=== PATIENT | female | born 1970 | race Caucasian/White ===

== ENCOUNTER → 2017-02-17 | Outpatient (CLI) | payer BC ==
--- NOTE | 2017-02-18 07:31 | MM ---
Reason for exam: follow-up at short interval from prior study. Last mammogram was performed 7 months ago. History: Patient is postmenopausal. Benign MG stereo VAD BX RT of the right breast, July 30, 2016. Benign right mammotome panel of the right breast, May 10, 2010. Took hormonal contraceptives for 12 years. Physical Findings: Nurse did not find any significant physical abnormalities on exam. MG Diagnostic Mammo RT w CAD CC and MLO view(s) were taken of the right breast. Prior study comparison: July 18, 2016, right breast MG work up mamm w CAD RT. June 13, 2015, bilateral MG screening mammo w CAD. The breast tissue is heterogeneously dense. This may lower the sensitivity of mammography. Finding: There are typically benign round, milk of calcium calcifications in the right breast. Previous mammotome biopsy in the right breast x 2. There is a chronic nodularity in the right breast. These results were verbally communicated with the patient and result sheet given to the patient on 02/17/17. ASSESSMENT: Benign, BI-RAD 2 RECOMMENDATION: Return to routine screening mammogram schedule for both breasts. Back on schedule.
== END | disposition home or self-care (01) ==
LOC: RADMAMWWP 14:21
PROVIDERS: ATTEND Obstetrics & Gynecology
DX: R92.8 Other abnormal and inconclusive findings on diagnostic imaging of breast (principal); R92.1 Mammographic calcification found on diagnostic imaging of breast

== ENCOUNTER → 2017-07-23 | Outpatient (CLI) | payer BC ==
--- NOTE | 2017-07-24 10:06 | WWHP ---
DATE OF SERVICE: 07/23/17 CHIEF COMPLAINT: The patient is here for her routine gynecological exam and mammogram. HISTORY OF PRESENT ILLNESS: This is a 46-year-old G2, P2, with an LMP of 2010. She is status post endometrial ablation for hypermenorrhea and has been amenorrheic since 2010. She is status post tubal ligation. The patient has been experiencing greater hot flashes during the past year. She states they can be variable. She states they are tolerable. She denies any vaginal bleeding. PAST MEDICAL HISTORY: [place] in 2011 and is status post stent placement. She also has history of elevated cholesterol. Medications: 1. Plavix generic 75 mg daily. 2. Coreg generic 3.125 mg b.i.d. 3. Atorvastatin 40 mg daily. 4. John aspirin 81 mg daily. ALLERGIES: No known drug allergies. PAST SURGICAL HISTORY: Right breast biopsy on 07/2016 which was benign. Laparoscopic ovarian cyst surgery in 2014. Tubal ligation in 1999. Endometrial ablation in 2010. in 1997, foot surgery in 2015. PAST PRODUCTION CONSULTANT HISTORY: She has been amenorrheic since her endometrial ablation in 2010 and has no history of STDs. SOCIAL HISTORY: She quit smoking in 2011 and has about 3 to 5 alcohol drinks per week. Denies drug use. She has been since 1994. 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 FAMILY HISTORY: Sister had coronary artery disease and cervical cancer. REVIEW OF SYSTEMS: Weight has been stable. She denies respiratory, cardiac or gastrointestinal problems. PHYSICAL EXAM: Blood pressure 129/80. Height 5 feet 5 1/2 inches. Weight 169 pounds. Temperature 98.1. Pulse 76. This is a well developed, well nourished white female who is alert and oriented times three in no acute distress. HEENT: is within normal limits. Neck is supple without mass or thyromegaly. Chest and lungs clear to auscultation. Heart is regular rate and rhythm. Breasts: Without mass or discharge. Axillary exam is negative for adenopathy. Back negative for CVA tenderness. Abdomen is soft and nontender without palpable masses. Pelvic exam, normal external genitalia. Cervix and vagina appear normal. There is no significant atrophy. There is no evidence of prolapse. The uterus is mid position, nongravid size and nontender. There are no palpable adnexal masses or tenderness. Rectal exam negative for mass or tenderness. Negative for occult blood. Extremities nontender. IMPRESSION: 1. A 46-year-old perimenopausal female who is amenorrheic following her endometrial ablation and is status post tubal ligation. 2. Moderate vasomotor symptoms consistent with perimenopause. PLAN: 1. Pap smear was deferred since she had a normal one last year. 2. Self breast examination was discussed. 3. Mammogram will be done today. 4. Osteoporosis prevention was discussed. 5. She will return in one year. MARLEEN
--- NOTE | 2017-07-24 11:23 | MM ---
Reason for exam: screening (asymptomatic). Last mammogram was performed 5 months ago. History: Patient is postmenopausal. Benign MG stereo VAD BX RT of the right breast, July 30, 2016. Benign right mammotome panel of the right breast, May 10, 2010. Took hormonal contraceptives for 12 years. Physical Findings: Dr. Navarrete did not find any significant physical abnormalities on exam. MG Screening Mammo w CAD Bilateral CC and MLO view(s) were taken. Prior study comparison: February 17, 2017, right breast MG diagnostic mammo RT w CAD. July 18, 2016, right breast MG work up mamm w CAD RT. July 16, 2016, bilateral MG screening mammo w CAD. The breast tissue is heterogeneously dense. This may lower the sensitivity of mammography. There are stable calcifications associated with biopsy markers. Biopsy markers in the right breast. ASSESSMENT: Benign, BI-RAD 2 RECOMMENDATION: Routine screening mammogram of both breasts in 1 year.
== END ==
LOC: WWCWWP 08:41
PROVIDERS: ATTEND Obstetrics & Gynecology
DX: Z12.31 Encounter for screening mammogram for malignant neoplasm of breast (principal)

== ENCOUNTER 2017-12-24 09:11 | Emergency (ER) | payer BC ==
[2017-12-24] MEDS ORDERED: SODIUM CHLORIDE 0.9% 1,000 ML IV STA (09:22)
[2017-12-24] MEDS ORDERED: HYDROmorphone 0.5 MG/0.5 ML SYRINGE IVP STA (09:26)
--- NOTE | 2017-12-24 09:30 | ED ---
General Adult HPI - General Chief complaint: Abdominal Pain Stated complaint: ABDOMINAL PAIN Time Seen by Provider: 12/24/17 09:16 Source: patient, RN notes reviewed Mode of arrival: ambulatory Limitations: no limitations - History of Present Illness Initial comments: 47-year-old female presents to the emergency department with a chief complaint of right-sided flank pain. Patient states this started on Friday. It originally started coming and going but now it is common in this state. Patient states that she hasn't had any fever chills with this. She's not had any nausea or vomiting. She is not related to food. Initially she thought it might be back pain but then it just continue to exist and it keeps getting worse. She states that it is a constant type pain. She states that her [place] does help with the pain. She denies any falls traumas or injuries with it. She called her physician and she was referred here to be evaluated. She states she is not currently having any other symptoms at this time. Patient denies any recent fever, chills, shortness of breath, chest pain, back pain, nausea vomiting, numbness or tingling, dysuria or hematuria, constipation or diarrhea, headaches or visual changes, or any other current symptoms. - Related Data Home Medications Medication Instructions Recorded Confirmed Aspirin 81 mg PO DAILY 12/16/14 12/24/17 Atorvastatin [Lipitor] 40 mg PO HS 12/16/14 12/24/17 Clopidogrel Bisulfate [Plavix] 75 mg PO DAILY 12/16/14 12/24/17 Carvedilol [Coreg] 3.125 mg PO BID 01/29/16 12/24/17 Previous Rx's Medication Instructions Recorded Orphenadrine [Norflex] 100 mg PO Q12H #10 tablet.er 12/24/17 Allergies Allergy/AdvReac Type Severity Reaction Status Date / Time No Known Allergies Allergy Verified 12/24/17 09:40 Review of Systems ROS Statement: Those systems with pertinent positive or pertinent negative responses have been documented in the HPI. ROS Other: All systems not noted in ROS Statement are negative. Past Medical History Past Medical History: Coronary Artery Disease (CAD), Myocardial Infarction ([place]) Additional Past Medical History / Comment(s): 12/16/14 [facility] with c/o abdominal pain that started last nite. Towards morning she also had some nausea. She went to Dr. Rocael Tarango's office this AM and was sent to hospital for further work-up. There was concern about possibel appendicitis. Pt also experienced low grade fevers. Other HX [place] August 2012 Last Myocardial Infarction Date:: 2011 History of Any Multi-Drug Resistant Organisms: None Reported Past Surgical History: Ablation, Section, Heart Catheterization With Stent, Tubal Ligation Additional Past Surgical History / Comment(s): colonoscopy about 1997 Past Anesthesia/Blood Transfusion Reactions: No Reported Reaction Additional Past Anesthesia/Blood Transfusion Reaction / Comment(s): Pt has never recieved blood. Date of Last Stent Placement:: Aug 2012 Past Psychological History: No Psychological Hx Reported Smoking Status: Former smoker Past Alcohol Use History: Occasional Past Drug Use History: None Reported - Past Family History Father Family Medical History: CVA/TIA Additional Family Medical History / Comment(s): Father is living. Mother Family Medical History: Diabetes Mellitus Additional Family Medical History / Comment(s): Mother is living. General Exam - General Exam Comments Initial Comments: General: The patient is awake and alert, in no distress, and does not appear acutely ill. Eye: Pupils are equal, round and reactive to light, extra-ocular movements are intact; there is normal conjunctiva bilaterally. No signs of icterus. Ears, nose, mouth and throat: There are moist mucous membranes and no oral lesions. Neck: The neck is supple, there is no tenderness. Cardiovascular: There is a regular rate and rhythm. No murmur, rub or gallop is appreciated. Respiratory: Lungs are clear to auscultation, respirations are non-labored, breath sounds are equal. No wheezes, stridor, rales, or rhonchi. Gastrointestinal: Soft, non-distended, non-tender abdomen without masses or organomegaly noted. There is no rebound or guarding present. Right-sided CVA tenderness. Bowel sounds are unremarkable. Back: There is no tenderness to palpation in the midline. There is no obvious deformity. No rashes noted. Musculoskeletal: Normal ROM, no tenderness, There is no pedal edema. There is no calf tenderness or swelling. Sensation intact. Pulses equal bilaterally 2+. Neurological: CN II-XII intact, There are no obvious motor or sensory deficits. Coordination appears grossly intact. Speech is normal. Skin: Skin is warm and dry and no rashes or lesions are noted. Psychiatric: Cooperative, appropriate mood & affect, normal judgment. Limitations: no limitations Course Vital Signs 12/24/17 09:13 Temperature 97.8 F Pulse Rate 55 L Respiratory 20 Rate Blood Pressure 147/74 O2 Sat by Pulse 99 Oximetry Medical Decision Making - Medical Decision Making 47-year-old female presents for right-sided flank pain. At this time lab work is been reviewed. I got a verbal report of the CAT scan was that there is nothing acute found. This time patient is feeling better. We discussed different etiologies for this pain liters discussed the could be muscle skeletal due to the its positional change and the fact there is no fever nausea vomiting associated with it. 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 We discussed we'll also start her muscle relaxers as well as exercises. We did discuss return parameters all questions. She stated that she understood and she is given plan. She will be discharged. - Lab Data Result diagrams: 12/24/17 10:05 12/24/17 10:05 Lab Results 12/24/17 12/24/17 12/24/17 Range/Units 10:05 10:05 10:05 WBC 7.6 (3.8-10.6) k/uL RBC 4.20 (3.80-5.40) m/uL Hgb 13.6 (11.4-16.0) gm/dL Hct 42.3 (34.0-46.0) % MCV 100.8 H (80.0-100.0) fL MCH 32.3 (25.0-35.0) pg MCHC 32.0 (31.0-37.0) g/dL RDW 14.0 (11.5-15.5) % Plt Count 218 (150-450) k/uL Neutrophils % 56 % Lymphocytes % 31 % Monocytes % 5 % Eosinophils % 5 % Basophils % 0 % Neutrophils # 4.3 (1.3-7.7) k/uL Lymphocytes # 2.3 (1.0-4.8) k/uL Monocytes # 0.4 (0-1.0) k/uL Eosinophils # 0.4 (0-0.7) k/uL Basophils # 0.0 (0-0.2) k/uL Macrocytosis Slight Sodium 140 (137-145) mmol/L Potassium 3.7 (3.5-5.1) mmol/L Chloride 104 (98-107) mmol/L Carbon Dioxide 28 (22-30) mmol/L Anion Gap 8 mmol/L BUN 13 (7-17) mg/dL Creatinine 0.76 (0.52-1.04) mg/dL Est GFR (MDRD) Af Amer >60 (>60 ml/min/1.73 sqM) Est GFR (MDRD) Non-Af >60 (>60 ml/min/1.73 sqM) Glucose 106 H (74-99) mg/dL Plasma Lactic Acid Toi 0.9 (0.7-2.0) mmol/L Calcium 9.2 (8.4-10.2) mg/dL Total Bilirubin 0.5 (0.2-1.3) mg/dL AST 19 (14-36) U/L ALT 34 (9-52) U/L Alkaline Phosphatase 64 (38-126) U/L Total Protein 6.7 (6.3-8.2) g/dL Albumin 3.9 (3.5-5.0) g/dL Amylase 42 (30-110) U/L Lipase 68 (23-300) U/L Urine Color Urine Appearance (Clear) Urine pH (5.0-8.0) Ur Specific [place] (1.001-1.035) Urine Protein (Negative) Urine Glucose (UA) (Negative) Urine Ketones (Negative) Urine Blood (Negative) Urine Nitrite (Negative) Urine Bilirubin (Negative) Urine Urobilinogen (<2.0) mg/dL Ur Leukocyte Esterase (Negative) Urine RBC (0-5) /hpf Urine WBC (0-5) /hpf Ur Squamous Epith Cells (0-4) /hpf Urine Bacteria (None) /hpf Urine Mucus (None) /hpf 12/24/17 Range/Units 10:05 WBC (3.8-10.6) k/uL RBC (3.80-5.40) m/uL Hgb (11.4-16.0) gm/dL Hct (34.0-46.0) % MCV (80.0-100.0) fL MCH (25.0-35.0) pg MCHC (31.0-37.0) g/dL RDW (11.5-15.5) % Plt Count (150-450) k/uL Neutrophils % % Lymphocytes % % Monocytes % % Eosinophils % % Basophils % % Neutrophils # (1.3-7.7) k/uL Lymphocytes # (1.0-4.8) k/uL Monocytes # (0-1.0) k/uL Eosinophils # (0-0.7) k/uL Basophils # (0-0.2) k/uL Macrocytosis Sodium (137-145) mmol/L Potassium (3.5-5.1) mmol/L Chloride (98-107) mmol/L Carbon Dioxide (22-30) mmol/L Anion Gap mmol/L BUN (7-17) mg/dL Creatinine (0.52-1.04) mg/dL Est GFR (MDRD) Af Amer (>60 ml/min/1.73 sqM) Est GFR (MDRD) Non-Af (>60 ml/min/1.73 sqM) Glucose (74-99) mg/dL Plasma Lactic Acid Toi (0.7-2.0) mmol/L Calcium (8.4-10.2) mg/dL Total Bilirubin (0.2-1.3) mg/dL AST (14-36) U/L ALT (9-52) U/L Alkaline Phosphatase (38-126) U/L Total Protein (6.3-8.2) g/dL Albumin (3.5-5.0) g/dL Amylase (30-110) U/L Lipase (23-300) U/L Urine Color Yellow Urine Appearance Cloudy H (Clear) Urine pH 5.5 (5.0-8.0) Ur Specific [place] 1.012 (1.001-1.035) Urine Protein Negative (Negative) Urine Glucose (UA) Negative (Negative) Urine Ketones Negative (Negative) Urine Blood Negative (Negative) Urine Nitrite Negative (Negative) Urine Bilirubin Negative (Negative) Urine Urobilinogen <2.0 (<2.0) mg/dL Ur Leukocyte Esterase Negative (Negative) Urine RBC <1 (0-5) /hpf Urine WBC <1 (0-5) /hpf Ur Squamous Epith Cells 6 H (0-4) /hpf Urine Bacteria Occasional H (None) /hpf Urine Mucus Occasional H (None) /hpf - Radiology Data Radiology results: image reviewed Interpreted by me: verbal report was given which stated no acute process Disposition Clinical Impression: Right flank pain Disposition: HOME SELF-CARE Condition: Stable Instructions: Lower Back Exercises (ED), Abdominal Pain (ED) Additional Instructions: Please use medication as discussed. Please follow up with family doctor if symptoms have not improved over the next two days. Please return to the emergency room if your symptoms increase or worsen or for any other concerns. Prescriptions: Orphenadrine [Norflex] 100 mg PO Q12H #10 tablet.er Referrals: Mainor Tarango MD [Primary Care Provider] - 1-2 days Time of Disposition: 12:01
[2017-12-24 10:18] LABS: Basophils % (A) 0 %; Eosinophils # (A) 0.4 k/uL (0-0.7); Eosinophils % (A) 5 %; HCT 42.3 % (34.0-46.0); HGB 13.6 gm/dL (11.4-16.0); Lymphocytes # (A) 2.3 k/uL (1.0-4.8); Lymphocytes % (A) 31 %; MCH 32.3 pg (25.0-35.0); MCV 100.8 fL (80.0-100.0); Macrocytosis Slight; Mean Platelet Volume 7.7; Monocytes # (A) 0.4 k/uL (0-1.0); Monocytes % (A) 5 %; Neutrophils # (A) 4.3 k/uL (1.3-7.7); Neutrophils % (A) 56 %; Platelet Count 218 k/uL (150-450); WBC 7.6 k/uL (3.8-10.6)
[2017-12-24 10:30] LABS: Appearance,Urine Cloudy (Clear); Bacteria,Urine Occasional /hpf; Bilirubin,Urine Negative (Negative); Blood,Urine Negative (Negative); Color,Urine Yellow; Glucose,Urine (UA) Negative (Negative); Ketones,Urine Negative (Negative); Leukocyte Esterase,Urine Negative (Negative); Mucus,Urine Occasional /hpf; Nitrite,Urine Negative (Negative); PH, Urine 5.5 (5.0-8.0); Protein,Urine Negative (Negative); RBC,Urine <1 /hpf (0-5); Specific Gravity,Urine 1.012 (1.001-1.035); Squamous Epithelial Cell,Urine 6 /hpf (0-4); Urobilinogen,Urine <2.0 mg/dL (<2.0); WBC,Urine <1 /hpf (0-5)
[2017-12-24 10:33] LABS: ALT 34 U/L (9-52); AST 19 U/L (14-36); Albumin 3.9 g/dL (3.5-5.0); Alkaline Phosphatase 64 U/L (38-126); Amylase 42 U/L (30-110); Anion Gap 8 mmol/L; Blood Urea Nitrogen 13 mg/dL (7-17); Calcium 9.2 mg/dL (8.4-10.2); Carbon Dioxide 28 mmol/L (22-30); Chloride 104 mmol/L (98-107); Glucose 106 mg/dL (74-99); Lipase 68 U/L (23-300); Potassium 3.7 mmol/L (3.5-5.1); Sodium 140 mmol/L (137-145); Total Bilirubin 0.5 mg/dL (0.2-1.3); Total Protein 6.7 g/dL (6.3-8.2)
[2017-12-24] MEDS ORDERED: RX INFO: IV CONTRAST WAS GIVEN 1 EACH MISC MISCELLANE PRN (10:34)
--- NOTE | 2017-12-24 12:39 | CT ---
EXAMINATION TYPE: CT abdomen pelvis w con DATE OF EXAM: 12/24/2017 HISTORY: Patient complains of RLQ pain. CT DLP: 612.1mGycm Automated Exposure Control for Dose Reduction was Utilized. CONTRAST: CT scan of the abdomen and pelvis is performed without oral and with IV Contrast, patient injected wi th 100 mL of Omnipaque 300. COMPARISON: CT abdomen and pelvis October 16, 2015. FINDINGS: LUNG BASES: No significant abnormality is appreciated. LIVER/GB: Single calcification left hepatic lobe axial image 19 is redemonstrated. PANCREAS: No significant abnormality is seen. SPLEEN: No significant abnormality is seen. ADRENALS: No significant abnormality is seen. KIDNEYS: No significant abnormality is seen. BOWEL: Some food product in the stomach suggest recent meal ingestion. No suspicious small or large b owel dilatation is seen. Appendix is within normal limits slightly ascending from posterior aspect of cecum. UTERUS/ADNEXA: Heterogeneous lobulated uterus is consistent with underlying fibroids there is promine nce of the lower uterine segment or cervix on axial image 71, this has similar appearance to prior st y axial image 71. Both ovaries are seen and not suspiciously enlarged. LYMPH NODES: No greater than 1cm abdominal or pelvic lymph nodes are appreciated. OSSEOUS STRUCTURES: There is marked disc space narrowing with endplate sclerosis and moderate spurrin g L4-L5 levels. There is facet arthropathy seen lower lumbar levels. OTHER: No significant additional abnormality is seen. IMPRESSION: No CT evidence for acute appendicitis. No significant acute finding is seen to account fo r patient's clinical symptoms.
[2017-12-24 12:41] VITALS: BP 121/69; PULSE 51; RESP 18; TEMP 96.9
== END 2017-12-24 12:40 | disposition home or self-care (01) ==
LOC: EC 09:11
DX: R10.9 Unspecified abdominal pain (principal); I25.10 Atherosclerotic heart disease of native coronary artery without angina pectoris; I25.2 Old myocardial infarction; Z87.891 Personal history of nicotine dependence; Z79.02 Long term (current) use of antithrombotics/antiplatelets; Z79.82 Long term (current) use of aspirin; Z79.899 Other long term (current) drug therapy
CPT/HCPCS: 36415; 80053; 82150; 83605; 83690; 85025; 81001; 87040; 87086; 74177; 99284; 96374; 96361; Q9967; J1170

== ENCOUNTER 2018-03-10 12:23 | Emergency (ER) | payer BC ==
[2018-03-10] MEDS ORDERED: SODIUM CHLORIDE 0.9% 500 ML IV STA (12:53)
--- NOTE | 2018-03-10 12:58 | ED ---
General Adult HPI - General Source: RN notes reviewed <Javier Steel - Last Filed: 03/10/18 14:27> <Francisco Garcia - Last Filed: 03/10/18 15:13> - General Stated complaint: Chest pain Time Seen by Provider: 03/10/18 12:48 - History of Present Illness Initial comments: This a pleasant 47-year-old female presents emergency department after developing a fast heart rate and some chest pressure while at work. Symptoms started about 11:40 AM. Patient does have a history of myocardial infarction in 2011. Patient had to have one vessel stented. Patient's gear hobber is ARA Clemons. Patient states she did take a nitroglycerin and is having some lightheadedness. Patient states she feels somewhat better now. She states the sensation lasted for several minutes. Patient has no history of tachyarrhythmias. Patient denies fever or chills. No cough. No new medications. No smoking or alcohol abuse. No illicit drug abuse. No thyroid issues. Patient has been eating and drinking normally. No abdominal pain. No headache. No vision or hearing changes. No paresthesias. No change in bowels or urination. (Javier Steel) - Related Data Home Medications Medication Instructions Recorded Confirmed Aspirin 81 mg PO DAILY 12/16/14 03/10/18 Atorvastatin [Lipitor] 40 mg PO HS 12/16/14 03/10/18 Clopidogrel Bisulfate [Plavix] 75 mg PO DAILY 12/16/14 03/10/18 Carvedilol [Coreg] 3.125 mg PO BID 01/29/16 03/10/18 Previous Rx's Medication Instructions Recorded Hydrocodone/Acetaminophen [[place] 1 each PO Q6HR PRN #10 tab 12/24/17 5-325] Orphenadrine [Norflex] 100 mg PO Q12H #10 tablet.er 12/24/17 Allergies Allergy/AdvReac Type Severity Reaction Status Date / Time No Known Allergies Allergy Verified 03/10/18 13:03 Review of Systems ROS Other: All systems not noted in ROS Statement are negative. <Javier Steel - Last Filed: 03/10/18 14:27> ROS Other: All systems not noted in ROS Statement are negative. <Francisco Garcia - Last Filed: 03/10/18 15:13> ROS Statement: Those systems with pertinent positive or pertinent negative responses have been documented in the HPI. Past Medical History Past Medical History: Coronary Artery Disease (CAD), Myocardial Infarction ([place]) Additional Past Medical History / Comment(s): 12/16/14 Pt presented to [facility] ER by car with c/o abdominal pain that started last nite. Towards morning she also had some nausea. She went to Dr. Rocael Tarango's office this AM and was sent to hospital for further work-up. There was concern about possibel appendicitis. Pt also experienced low grade fevers. Other HX [place] August 2012 Last Myocardial Infarction Date:: 2011 History of Any Multi-Drug Resistant Organisms: None Reported Past Surgical History: Ablation, Section, Heart Catheterization With Stent, Tubal Ligation Additional Past Surgical History / Comment(s): colonoscopy about 1997 Past Anesthesia/Blood Transfusion Reactions: No Reported Reaction Additional Past Anesthesia/Blood Transfusion Reaction / Comment(s): Pt has never recieved blood. Date of Last Stent Placement:: Aug 2012 Past Psychological History: No Psychological Hx Reported Smoking Status: Former smoker Past Alcohol Use History: Occasional Additional Past Alcohol Use History / Comment(s): Past medical and surgical history reviewed Past Drug Use History: None Reported - Past Family History Father Family Medical History: CVA/TIA Additional Family Medical History / Comment(s): Father is living. Mother Family Medical History: Diabetes Mellitus Additional Family Medical History / Comment(s): Mother is living. <Javier Steel - Last Filed: 03/10/18 14:27> General Exam General appearance: alert, in no apparent distress Head exam: Present: atraumatic, normocephalic, normal inspection Eye exam: Present: normal appearance, PERRL, EOMI. Absent: scleral icterus, conjunctival injection, periorbital swelling ENT exam: Present: normal exam, mucous membranes moist Neck exam: Present: normal inspection. Absent: tenderness, meningismus, lymphadenopathy Respiratory exam: Present: normal lung sounds bilaterally. Absent: respiratory distress, wheezes, rales, rhonchi, stridor Cardiovascular Exam: Present: regular rate, normal rhythm, normal heart sounds. Absent: systolic murmur, diastolic murmur, rubs, gallop, clicks GI/Abdominal exam: Present: soft, normal bowel sounds. Absent: distended, tenderness, guarding, rebound, rigid Extremities exam: Present: normal inspection, full ROM, normal capillary refill. Absent: tenderness, pedal edema, joint swelling, calf tenderness Back exam: Present: normal inspection Neurological exam: Present: alert, oriented X3, CN II-XII intact Psychiatric exam: Present: normal affect, normal mood Skin exam: Present: warm, dry, intact, normal color. 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 (Javier Steel) - Reevaluation(s) Reevaluation #1: 03/10/18 12:58 As I assessed the patient initially I noticed that the heart rate is in the 60s. It appears the patient did spontaneously convert back to normal rhythm. Patient's symptoms are improving. (Javier Steel) Reevaluation #2: 03/10/18 14:14 Patient remained in normal sinus rhythm throughout the course of stay in the ER. Patient had no chest pain. Patient initially out palpitations and racing heartbeat. She did have a small amount of pressure with that sensation. She also had lightheadedness. The symptoms are improving. Patient's workup was essentially negative. (Javier Steel) EKG Findings - EKG Comments: EKG Findings:: Initial EKG at 12:32 PM reveals SVT with a rate of [address] or T-wave changes. CT interval is unmeasurable. QRS 72 ms, QTC 457 ms. Repeat EKG done at 1 PM reveals normal sinus rhythm with a rate of 63, CT interval 122, QRS 70, QTC 427, no acute ST or T wave changes, normal axis. <DamiánJavier - Last Filed: 03/10/18 14:27> Medical Decision Making - Lab Data Result diagrams: 03/10/18 13:00 03/10/18 13:00 <DamiánJavier - Last Filed: 03/10/18 14:27> - Lab Data Result diagrams: 03/10/18 13:00 03/10/18 13:00 <Francisco Garcia - Last Filed: 03/10/18 15:13> - Medical Decision Making Patient's workup here in the are was essentially negative. We will have the patient follow-up with her gear hobber and keep the patient out of work for the next few days. All findings reviewed with the patient. Return and follow- up parameters were discussed. Case was discussed in detail with the ER attending physician--who also saw the patient and suggested outpatient follow- up within the next few days with cardiology. Portable chest x-ray reveals no evidence of acute pathology (Javier Steel) The patient was seen and examined. All diagnostics were reviewed. Is felt as though she is stable for discharge at this time. The case is discussed with the PA and I agree with the findings as documented. It is recommended that she have close follow-up with her gear hobber. (Francisco Garcia) - Lab Data Lab Results 03/10/18 03/10/18 03/10/18 Range/Units 13:00 13:00 13:00 WBC 6.5 (3.8-10.6) k/uL RBC 4.43 (3.80-5.40) m/uL Hgb 14.5 (11.4-16.0) gm/dL Hct 41.0 (34.0-46.0) % MCV 92.6 (80.0-100.0) fL MCH 32.7 (25.0-35.0) pg MCHC 35.4 (31.0-37.0) g/dL RDW 12.4 (11.5-15.5) % Plt Count 224 (150-450) k/uL Neutrophils % 58 % Lymphocytes % 27 % Monocytes % 5 % Eosinophils % 7 % Basophils % 0 % Neutrophils # 3.8 (1.3-7.7) k/uL Lymphocytes # 1.8 (1.0-4.8) k/uL Monocytes # 0.3 (0-1.0) k/uL Eosinophils # 0.4 (0-0.7) k/uL Basophils # 0.0 (0-0.2) k/uL PT (9.0-12.0) sec INR (<1.2) APTT (22.0-30.0) sec Sodium 141 (137-145) mmol/L Potassium 4.3 (3.5-5.1) mmol/L Chloride 109 H (98-107) mmol/L Carbon Dioxide 18 L (22-30) mmol/L Anion Gap 14 mmol/L BUN 14 (7-17) mg/dL Creatinine 0.70 (0.52-1.04) mg/dL Est GFR (CKD-EPI)AfAm >90 (>60 ml/min/1.73 sqM) Est GFR (CKD-EPI)NonAf >90 (>60 ml/min/1.73 sqM) Glucose 105 H (74-99) mg/dL Calcium 9.6 (8.4-10.2) mg/dL Magnesium 1.8 (1.6-2.3) mg/dL Total Bilirubin 0.6 (0.2-1.3) mg/dL AST 22 (14-36) U/L ALT 27 (9-52) U/L Alkaline Phosphatase 83 (38-126) U/L Total Creatine Kinase 79 (30-135) U/L CK-MB (CK-2) 0.7 (0.0-2.4) ng/mL CK-MB (CK-2) Rel Index 0.9 Troponin I 0.015 (0.000-0.034) ng/mL Total Protein 7.4 (6.3-8.2) g/dL Albumin 4.2 (3.5-5.0) g/dL TSH (0.465-4.680) mIU/L 03/10/18 03/10/18 Range/Units 13:00 13:44 WBC (3.8-10.6) k/uL RBC (3.80-5.40) m/uL Hgb (11.4-16.0) gm/dL Hct (34.0-46.0) % MCV (80.0-100.0) fL MCH (25.0-35.0) pg MCHC (31.0-37.0) g/dL RDW (11.5-15.5) % Plt Count (150-450) k/uL Neutrophils % % Lymphocytes % % Monocytes % % Eosinophils % % Basophils % % Neutrophils # (1.3-7.7) k/uL Lymphocytes # (1.0-4.8) k/uL Monocytes # (0-1.0) k/uL Eosinophils # (0-0.7) k/uL Basophils # (0-0.2) k/uL PT 9.7 (9.0-12.0) sec INR 1.0 (<1.2) APTT 23.7 (22.0-30.0) sec Sodium (137-145) mmol/L Potassium (3.5-5.1) mmol/L Chloride (98-107) mmol/L Carbon Dioxide (22-30) mmol/L Anion Gap mmol/L BUN (7-17) mg/dL Creatinine (0.52-1.04) mg/dL Est GFR (CKD-EPI)AfAm (>60 ml/min/1.73 sqM) Est GFR (CKD-EPI)NonAf (>60 ml/min/1.73 sqM) Glucose (74-99) mg/dL Calcium (8.4-10.2) mg/dL Magnesium (1.6-2.3) mg/dL Total Bilirubin (0.2-1.3) mg/dL AST (14-36) U/L ALT (9-52) U/L Alkaline Phosphatase (38-126) U/L Total Creatine Kinase (30-135) U/L CK-MB (CK-2) (0.0-2.4) ng/mL CK-MB (CK-2) Rel Index Troponin I (0.000-0.034) ng/mL Total Protein (6.3-8.2) g/dL Albumin (3.5-5.0) g/dL TSH 1.100 (0.465-4.680) mIU/L Disposition Time of Disposition: 14:17 <Javier Steel - Last Filed: 03/10/18 14:27> <Francisco Garcia - Last Filed: 03/10/18 15:13> Clinical Impression: Paroxysmal supraventricular tachycardia Disposition: HOME SELF-CARE Condition: Good Instructions: Supraventricular Tachycardia (ED) Additional Instructions: Ensure that you call for a follow-up appointment with your primary care physician and her gear hobber as directed. No strenuous activity for the next few daysuntil follow-up. Referrals: Mainor Tarango MD [Primary Care Provider] - 1-2 days Kylie Clemons MD [STAFF PHYSICIAN] - 1-2 days
[2018-03-10 13:13] LABS: Basophils % (A) 0 %; Eosinophils # (A) 0.4 k/uL (0-0.7); Eosinophils % (A) 7 %; HGB 14.5 gm/dL (11.4-16.0); Lymphocytes # (A) 1.8 k/uL (1.0-4.8); Lymphocytes % (A) 27 %; MCH 32.7 pg (25.0-35.0); MCHC 35.4 g/dL (31.0-37.0); MCV 92.6 fL (80.0-100.0); Mean Platelet Volume 7.4; Monocytes # (A) 0.3 k/uL (0-1.0); Monocytes % (A) 5 %; Neutrophils # (A) 3.8 k/uL (1.3-7.7); Neutrophils % (A) 58 %; Platelet Count 224 k/uL (150-450); RBC 4.43 m/uL (3.80-5.40); RDW 12.4 % (11.5-15.5); WBC 6.5 k/uL (3.8-10.6)
[2018-03-10 13:24] VITALS: RESP 18
[2018-03-10 13:25] LABS: ALT 27 U/L (9-52); AST 22 U/L (14-36); Albumin 4.2 g/dL (3.5-5.0); Alkaline Phosphatase 83 U/L (38-126); Anion Gap 14 mmol/L; Blood Urea Nitrogen 14 mg/dL (7-17); Calcium 9.6 mg/dL (8.4-10.2); Carbon Dioxide 18 mmol/L (22-30); Chloride 109 mmol/L (98-107); Glucose 105 mg/dL (74-99); Magnesium 1.8 mg/dL (1.6-2.3); Potassium 4.3 mmol/L (3.5-5.1); Sodium 141 mmol/L (137-145); Total Bilirubin 0.6 mg/dL (0.2-1.3); Total Protein 7.4 g/dL (6.3-8.2)
[2018-03-10 13:53] LABS: Creatine Kinase MB 0.7 ng/mL (0.0-2.4); Troponin I 0.015 ng/mL (0.000-0.034)
[2018-03-10 14:13] LABS: Partial Thromboplastin Time 23.7 sec (22.0-30.0); Prothrombin Time 9.7 sec (9.0-12.0)
--- NOTE | 2018-03-10 14:21 | XR ---
EXAMINATION TYPE: XR chest 1V portable DATE OF EXAM: 03/10/2018 COMPARISON: Prior chest x-ray 10/27/2012 HISTORY: Chest pain TECHNIQUE: Single frontal view of the chest is obtained. FINDINGS: There is no focal air space opacity, pleural effusion, or pneumothorax seen. The cardiac silhouette size is within normal limits. There are overlying cardiac leads. The osseous structures a re intact. IMPRESSION: No acute process.
[2018-03-10 15:31] VITALS: BP 133/64; PULSE 72; TEMP 97.6
== END 2018-03-10 15:27 | disposition home or self-care (01) ==
LOC: EC 12:23
DX: I47.1 Supraventricular tachycardia (principal); I25.10 Atherosclerotic heart disease of native coronary artery without angina pectoris; I25.2 Old myocardial infarction; Z95.5 Presence of coronary angioplasty implant and graft; Z87.891 Personal history of nicotine dependence; Z79.82 Long term (current) use of aspirin; Z79.02 Long term (current) use of antithrombotics/antiplatelets; Z79.899 Other long term (current) drug therapy
CPT/HCPCS: 36415; 71045; 80053; 82550; 82553; 83735; 84443; 84484; 85025; 85610; 85730; 93005; 96360; 96361; 99285

== ENCOUNTER → 2018-08-04 | Outpatient (CLI) | payer BC ==
[2018-08-04 08:12] VITALS: BP 135/88; PULSE 57; TEMP 98; BMI 28.6
--- NOTE | 2018-08-04 08:44 | P.HPOB ---
History of Present Illness H&P Date: 08/04/18 Chief Complaint: The patient is here for her routine gynecologic exam and mammogram. This is a 47-year-old G2 PII with an LMP of 2010. The patient has status post endometrial ablation in 2010 and has been amenorrheic since then. The patient states she does have hot flashes but they seem to be less frequent. She has been using some topical essential oils for hot flashes. She is otherwise without complaints. Review of Systems The patient has gained 3 pounds over the last year. She denies respiratory, cardiac, or G.I. problems. 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 She has been amenorrheic since her endometrial ablation in 2010. Last Myocardial Infarction Date:: 2011 History of Any Multi-Drug Resistant Organisms: None Reported Past Surgical History: Ablation, Breast Surgery (Right biopsy 2015), Section, Heart Catheterization With Stent, Tubal Ligation, Uterine Ablation ( 2010) Additional Past Surgical History / Comment(s): colonoscopy about 1998. Laparoscopy for ovarian cyst 2014. Foot surgery. Past Anesthesia/Blood Transfusion Reactions: No Reported Reaction Additional Past Anesthesia/Blood Transfusion Reaction / Comment(s): Pt has never recieved blood. Date of Last Stent Placement:: Aug 2012 Past Psychological History: No Psychological Hx Reported Additional Psychological History / Comment(s): Pt lives at home with her and 2 children. 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 - Past Family History Father Family Medical History: Cancer (Throat), CVA/TIA Additional Family Medical History / Comment(s): Father is living. Mother Family Medical History: Diabetes Mellitus Additional Family Medical History / Comment(s): Mother is living. Sister(s) Family Medical History: Cancer (Cervical), Coronary Artery Disease (CAD) Medications and Allergies Home Medications Medication Instructions Recorded Confirmed Type Aspirin 81 mg PO DAILY 12/16/14 08/04/18 History Atorvastatin [Lipitor] 40 mg PO HS 12/16/14 08/04/18 History Carvedilol [Coreg] 3.125 mg PO BID 01/29/16 08/04/18 History Allergies Allergy/AdvReac Type Severity Reaction Status Date / Time No Known Allergies Allergy Verified 08/04/18 08:09 Exam Vital Signs Temp Pulse BP 08/04/18 08:09 98.0 F 57 L 135/88 Intake and Output 08/03/18 08/04/18 08/04/18 22:59 06:59 14:59 Other: Weight 78.018 kg Height 5'5", BMI 28.6. This is a well-developed well-nourished white female who is alert and oriented times 3 in no acute distress. HEENT: Within normal limits. NECK: Supple without mass or thyromegaly. CHEST AND LUNGS: Clear to auscultation. HEART: Regular rate and rhythm. BREASTS: Are without mass or discharge. AXILLARY EXAM: Negative for adenopathy. BACK: Negative for CVA tenderness. ABDOMEN: Soft, nontender, without palpable masses. PELVIC EXAM: Normal external genitalia with mild atrophy. Cervix and vagina appear normal minimal atrophy. There is no unusual discharge. There is no evidence of prolapse. The uterus is midposition, nongravid size and nontender. There are no palpable adnexal masses or tenderness. RECTAL EXAM: negative for mass or tenderness and is negative for occult blood. EXTREMITIES: Nontender. IMPRESSION: 1. 47-year-old perimenopausal female with mild vasomotor symptoms who has been amenorrheic since her endometrial ablation. 2. Normal gynecologic exam. PLAN: 1. Pap smear was performed. 2. Self breast awareness was discussed with the patient. 3. Osteoporosis prevention was discussed. 4. Screening mammogram will be done today. 5. She will return in one year.
--- NOTE | 2018-08-06 14:22 | MM ---
Reason for exam: screening (asymptomatic). Last mammogram was performed 1 year ago. History: Patient is postmenopausal. Benign MG stereo VAD BX RT of the right breast, July 30, 2016. Benign right mammotome panel of the right breast, May 10, 2010. Took hormonal contraceptives for 12 years. Physical Findings: A clinical breast exam by your physician is recommended on an annual basis and results should be correlated with mammographic findings. MG 3D Screening Mammo W/Cad Bilateral CC and MLO view(s) were taken. Prior study comparison: July 23, 2017, bilateral MG screening mammo w CAD. February 17, 2017, right breast MG diagnostic mammo RT w CAD. The breast tissue is heterogeneously dense. This may lower the sensitivity of mammography. Previous mammotome biopsy in the right breast. No significant changes when compared with prior studies. ASSESSMENT: Benign, BI-RAD 2 RECOMMENDATION: Routine screening mammogram of both breasts in 1 year.
== END | disposition home or self-care (01) ==
LOC: WWCWWP 07:54
PROVIDERS: ATTEND Obstetrics & Gynecology
DX: Z12.31 Encounter for screening mammogram for malignant neoplasm of breast (principal)
CPT/HCPCS: 77063; 77067

== ENCOUNTER 2019-04-07 10:21 | Emergency (ER) | payer BC, OTHER ==
[2019-04-07 10:27] VITALS: TEMP 97.9
[2019-04-07] MEDS ORDERED: FAMOTIDINE 20 MG/2 ML VIAL IV STA (10:52)
[2019-04-07] MEDS ORDERED: diphenhydrAMINE 50 MG/ML 1 ML VIAL IVP STA (10:52)
--- NOTE | 2019-04-07 11:09 | ED ---
General Adult HPI - General Chief complaint: Allergic Reaction Stated complaint: poss allergic reaction Time Seen by Provider: 04/07/19 10:25 Source: patient, RN notes reviewed Mode of arrival: ambulatory Limitations: no limitations - History of Present Illness Initial comments: This is a 48-year-old female presents emergency department thinking she has a ALLERGIC reaction. Patient states she receives IV Medrol and Rocephin in the doctor's office for a sinus infection after that she started having itching on her palms and upper chest. Patient states then she felt as though swelling there was a little more difficult. Patient denied any actual visual rashes. Patient denies any difficulty breathing or shortness of breath. Patient denies any areas of pain. Patient states she does not have any chest pain. Patient states she has had a history of heart attack. - Related Data Home Medications Medication Instructions Recorded Confirmed Aspirin 81 mg PO DAILY 12/16/14 04/07/19 Atorvastatin [Lipitor] 40 mg PO HS 12/16/14 04/07/19 Carvedilol [Coreg] 3.125 mg PO BID 01/29/16 04/07/19 Clopidogrel [Plavix] 75 mg PO DAILY 04/07/19 04/07/19 Previous Rx's Medication Instructions Recorded Amoxicillin/Potassium Clav 1 each PO Q12HR #20 tab 04/07/19 [Augmentin 875-125 Tablet] Allergies Allergy/AdvReac Type Severity Reaction Status Date / Time No Known Allergies Allergy Verified 04/07/19 11:13 Review of Systems ROS Statement: Those systems with pertinent positive or pertinent negative responses have been documented in the HPI. ROS Other: All systems not noted in ROS Statement are negative. 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 She has been amenorrheic since her endometrial ablation in 2010. Last Myocardial Infarction Date:: 2011 History of Any Multi-Drug Resistant Organisms: None Reported Past Surgical History: Ablation, Breast Surgery, Section, Heart Catheterization With Stent, Tubal Ligation, Uterine Ablation Additional Past Surgical History / Comment(s): colonoscopy about 1998. Laparoscopy for ovarian cyst 2014. Foot surgery. Past Anesthesia/Blood Transfusion Reactions: No Reported Reaction Additional Past Anesthesia/Blood Transfusion Reaction / Comment(s): Pt has never recieved blood. Date of Last Stent Placement:: Aug 2012 Past Psychological History: No Psychological Hx Reported Smoking Status: Current some day smoker Past Alcohol Use History: Occasional Past Drug Use History: None Reported - Past Family History Sister(s) Family Medical History: Cancer (Cervical), Coronary Artery Disease (CAD) Father Family Medical History: Cancer (Throat), CVA/TIA Additional Family Medical History / Comment(s): Father is living. Mother Family Medical History: Diabetes Mellitus Additional Family Medical History / Comment(s): Mother is living. General Exam - General Exam Comments Initial Comments: GENERAL: Patient is well-developed and well-nourished. Patient is nontoxic and well- hydrated and is in mild distress. ENT: Neck is soft and supple. No significant lymphadenopathy is noted. Oropharynx is clear. Moist mucous membranes. Neck has full range of motion without eliciting any pain. EYES: The sclera were anicteric and conjunctiva were pink and moist. Extraocular m ovements were intact and pupils were equal round and reactive to light. Eyelids were unremarkable. PULMONARY: Unlabored respirations. Good breath sounds bilaterally. No audible rales rhonchi or wheezing was noted. CARDIOVASCULAR: There is a regular rate and rhythm without any murmurs gallops or rubs. ABDOMEN: Soft and nontender with normal bowel sounds. No palpable organomegaly was noted. There is no palpable pulsatile mass. SKIN: Skin is clear with no lesions or rashes and otherwise unremarkable. NEUROLOGIC: Patient is alert and oriented x3. Cranial nerves II through XII are grossly intact. Motor and sensory are also intact. Normal speech, volume and content. Symmetrical smile. MUSCULOSKELETAL: Normal extremities with adequate strength and full range of motion. No lower extremity swelling or edema. No calf tenderness. LYMPHATICS: No significant lymphadenopathy is noted PSYCHIATRIC: Normal psychiatric evaluation. Limitations: no limitations Course Vital Signs 04/07/19 04/07/19 10:24 12:20 Temperature 97.9 F Pulse Rate 65 51 L Respiratory 16 18 Rate Blood Pressure 156/79 117/72 O2 Sat by Pulse 96 100 Oximetry Medical Decision Making - Medical Decision Making After patient received Benadryl and Pepcid I will back in the room to reevaluate her. Patient had already seems receive Solu-Medrol at the office. Patient was doing much better she had no more symptoms at this time and would follow-up as needed. Patient has a prescription for Medrol Dosepak and may be Augmentin at the pharmacy. Patient states she'll take Benadryl as needed. Patient states return for any difficulty breathing or swallowing. Disposition Clinical Impression: Allergic reaction Disposition: HOME SELF-CARE Condition: Good Instructions (If sedation given, give patient instructions): General Allergic Reaction (ED) Prescriptions: Amoxicillin/Potassium Clav [Augmentin 875-125 Tablet] 1 each PO Q12HR #20 tab Is patient prescribed a controlled substance at d/c from ED?: No Referrals: Mainor Tarango MD [Primary Care Provider] - 1-2 days Time of Disposition: 13:01
[2019-04-07 12:21] VITALS: BP 117/72; PULSE 51; RESP 18
== END 2019-04-07 13:29 | disposition home or self-care (01) ==
LOC: EC 10:21
DX: T78.40XA Allergy, unspecified, initial encounter (principal); I25.10 Atherosclerotic heart disease of native coronary artery without angina pectoris; E78.5 Hyperlipidemia, unspecified; I25.2 Old myocardial infarction; F17.200 Nicotine dependence, unspecified, uncomplicated; Z79.82 Long term (current) use of aspirin; Z79.02 Long term (current) use of antithrombotics/antiplatelets; Z79.899 Other long term (current) drug therapy; Z95.5 Presence of coronary angioplasty implant and graft
CPT/HCPCS: 96374; 96375; 99283

== ENCOUNTER → 2019-10-19 | Outpatient (CLI) | payer OTHER ==
--- NOTE | 2019-10-20 12:10 | MM ---
Reason for exam: screening (asymptomatic). Last mammogram was performed 1 year and 2 months ago. History: Patient is postmenopausal. Benign MG stereo VAD BX RT of the right breast, July 30, 2016. Benign right mammotome panel of the right breast, May 10, 2010. Took hormonal contraceptives for 12 years. Physical Findings: A clinical breast exam by your physician is recommended on an annual basis and results should be correlated with mammographic findings. MG Screening Mammo w CAD Bilateral CC and MLO view(s) were taken. Prior study comparison: August 04, 2018, bilateral MG 3d screening mammo w/cad. July 23, 2017, bilateral MG screening mammo w CAD. The breast tissue is heterogeneously dense. This may lower the sensitivity of mammography. Previous mammotome biopsy in the right breast x 2. There is no discrete abnormality. ASSESSMENT: Benign, BI-RAD 2 RECOMMENDATION: Routine screening mammogram of both breasts in 1 year.
== END | disposition home or self-care (01) ==
LOC: RADMAMWWP 14:05
PROVIDERS: ATTEND Obstetrics & Gynecology
DX: Z12.31 Encounter for screening mammogram for malignant neoplasm of breast (principal)
CPT/HCPCS: 77067

== ENCOUNTER → 2019-10-19 | Outpatient (CLI) | payer OTHER ==
[2019-10-19 13:26] VITALS: BP 145/84; PULSE 56; RESP 18; TEMP 98.3; BMI 30.7
--- NOTE | 2019-10-19 14:08 | P.HPOB ---
History of Present Illness H&P Date: 10/19/19 Chief Complaint: The patient is here for her routine gynecologic exam and ma mmogram. This is a 48-year-old with an LMP of 2010. The patient is status post endometrial ablation in 2010 and has been amenorrheic since then. The patient has been experiencing more hot flashes and night sweats which can be moderate. She uses some topical essential oils for the hot flashes. She is otherwise without complaints. Review of Systems The patient has gained 11 pounds over the last year. She denies respiratory, cardiac, or G.I. problems. 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 She has been amenorrheic since her endometrial ablation in 2010. Last Myocardial Infarction Date:: 2011 History of Any Multi-Drug Resistant Organisms: None Reported Past Surgical History: Ablation, Breast Surgery, Section, Heart Catheterization With Stent, Tubal Ligation, Uterine Ablation Additional Past Surgical History / Comment(s): colonoscopy about 1998. Laparoscopy for ovarian cyst 2014. Foot surgery. Past Anesthesia/Blood Transfusion Reactions: No Reported Reaction Additional Past Anesthesia/Blood Transfusion Reaction / Comment(s): Pt has never recieved blood. Date of Last Stent Placement:: Aug 2012 Past Psychological History: No Psychological Hx Reported Additional Psychological History / Comment(s): Pt lives at home with her and 2 children. 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 Smoking Status: Former smoker Past Alcohol Use History: Occasional (5 per week) Additional Past Alcohol Use History / Comment(s): She quit smoking in 2011. 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 - Past Family History Sister(s) Family Medical History: Cancer, Coronary Artery Disease (CAD) Additional Family Medical History / Comment(s): Cervical cancer. Father Family Medical History: Cancer, CVA/TIA Additional Family Medical History / Comment(s): Father is living. Throat cancer. Mother Family Medical History: Diabetes Mellitus Additional Family Medical History / Comment(s): Mother is living. Medications and Allergies Home Medications Medication Instructions Recorded Confirmed Type Aspirin 81 mg PO DAILY 12/16/14 10/19/19 History Atorvastatin [Lipitor] 40 mg PO HS 12/16/14 10/19/19 History Carvedilol [Coreg] 3.125 mg PO BID 01/29/16 10/19/19 History Clopidogrel [Plavix] 75 mg PO DAILY 04/07/19 10/19/19 History Verapamil HCl [Verapamil ER] 120 mg PO DAILY 10/19/19 10/19/19 History Allergies Allergy/AdvReac Type Severity Reaction Status Date / Time ceftriaxone [From Rocephin] Allergy Wheezing Unverified 10/19/19 13:30 Exam Vital Signs Temp Pulse Resp BP Pulse Ox 10/19/19 13:22 98.3 F 56 L 18 145/84 99 Intake and Output 10/18/19 10/19/19 10/19/19 22:59 06:59 14:59 Other: Weight 83.915 kg Height 5 feet 5 inches, weight 185 pounds, BMI 30.8. This is a well-developed well-nourished white female who is alert and oriented times 3 in no acute distress. HEENT: Within normal limits. NECK: Supple without mass or thyromegaly. CHEST AND LUNGS: Clear to auscultation. HEART: Regular rate and rhythm. BREASTS: Are without mass or discharge. AXILLARY EXAM: Negative for adenopathy. BACK: Negative for CVA tenderness. ABDOMEN: Soft, nontender, without palpable masses. PELVIC EXAM: Normal external genitalia. Cervix and vagina appear normal with minimal atrophy. There is no unusual discharge. There is no evidence of prolapse. The uterus is midposition, nongravid size and nontender. There are no palpable adnexal masses or tenderness. RECTAL EXAM: negative for mass or tenderness and is negative for occult blood. EXTREMITIES: Nontender. IMPRESSION: 1. 48-year-old perimenopausal female who has been amenorrheic since her endometrial ablation. 2. Normal gynecologic exam. 3. Elevated blood pressure. PLAN: 1. Pap smear was deferred since she had a normal one on 08/04/2018. 2. Self breast awareness was discussed with the patient. 3. Screening mammogram will be done today. 4. Osteoporosis prevention was discussed. I have stressed the importance of adequate calcium, vitamin D and regular exercise. Recommended amounts of calcium and vitamin D were also discussed. 5. I have recommended screening colonoscopy after age 50. She will speak with Dr. Tarango regarding her options. 6. We have discussed her elevated blood pressure. Have recommended that she check her blood pressures on a regular basis and follow up with Dr. Tarango for blood pressure elevations. 7. She was advised to return in one year for her annual well woman exam.
== END ==
LOC: WWCWWP 13:02
PROVIDERS: ATTEND Obstetrics & Gynecology
DX: Z53.9 Procedure and treatment not carried out, unspecified reason (principal)

== ENCOUNTER → 2020-09-15 | Outpatient (CLI) | payer OTHER | END | disposition home or self-care (01) | LOC: LABWHC1 08:55 | PROVIDERS: ATTEND Family Medicine | DX: Z03.89 Encounter for observation for other suspected diseases and conditions ruled out (principal) | CPT/HCPCS: U0003; C9803 ==

== ENCOUNTER → 2020-09-28 | Outpatient (CLI) | payer OTHER | END | disposition home or self-care (01) | LOC: LABWHC1 08:40 | PROVIDERS: ATTEND Family Medicine | DX: U07.1 COVID-19 (principal) | CPT/HCPCS: U0003; C9803 ==

== ENCOUNTER → 2020-12-26 | Outpatient (CLI) | payer OTHER ==
[2020-12-26 11:43] VITALS: BP 131/84; PULSE 60; RESP 18; TEMP 98.1
--- NOTE | 2020-12-26 12:37 | P.HPOB ---
History of Present Illness H&P Date: 12/26/20 Chief Complaint: The patient is here for her routine gynecologic exam and ma mmogram. This is a 50-year-old with an LMP of 2010. The patient is status post endometrial ablation in 2010 and has been amenorrheic since then. She had significant hot flashes during the past 1-2 years and is considered menopausal. She is complaining of abdominal bloating for the last 5 months and has had weight gain. She has been trying to lose weight with diet and exercise without much success. She is otherwise without complaints and denies any postmenopausal bleeding. Review of Systems The patient has gained 15 pounds over the last year. She denies respiratory, cardiac, or G.I. problems. 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 She has been amenorrheic since her endometrial ablation in 2010. Last Myocardial Infarction Date:: 2011 History of Any Multi-Drug Resistant Organisms: None Reported Past Surgical History: Ablation, Breast Surgery, Section, Heart Catheterization With Stent, Tubal Ligation, Uterine Ablation Additional Past Surgical History / Comment(s): colonoscopy about 1998. Laparoscopy for ovarian cyst 2014. Foot surgery. Past Anesthesia/Blood Transfusion Reactions: No Reported Reaction Additional Past Anesthesia/Blood Transfusion Reaction / Comment(s): Pt has never recieved blood. Date of Last Stent Placement:: Aug 2012 Past Psychological History: No Psychological Hx Reported Additional Psychological History / Comment(s): Pt lives at home with her and 2 children. 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 Smoking Status: Former smoker Past Alcohol Use History: Occasional (1 per week) Additional Past Alcohol Use History / Comment(s): She quit smoking in 2011. 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 - Past Family History Sister(s) Family Medical History: Cancer, Coronary Artery Disease (CAD) Additional Family Medical History / Comment(s): Cervical cancer. Father Family Medical History: Cancer, CVA/TIA Additional Family Medical History / Comment(s): Father is living. Throat cancer. Mother Family Medical History: Diabetes Mellitus Additional Family Medical History / Comment(s): Mother is living. Medications and Allergies Home Medications Medication Instructions Recorded Confirmed Type Aspirin 81 mg PO DAILY 12/16/14 12/26/20 History Atorvastatin [Lipitor] 40 mg PO HS 12/16/14 12/26/20 History carvediloL [Coreg] 3.125 mg PO BID 01/29/16 12/26/20 History Clopidogrel [Plavix] 75 mg PO DAILY 04/07/19 12/26/20 History Verapamil HCl [Verapamil ER] 120 mg PO DAILY 10/19/19 12/26/20 History Allergies Allergy/AdvReac Type Severity Reaction Status Date / Time ceftriaxone [From Rocephin] Allergy Wheezing Unverified 12/26/20 11:23 Exam Vital Signs Temp Pulse Resp BP Pulse Ox 12/26/20 11:25 98.1 F 60 18 131/84 97 Intake and Output 12/25/20 12/26/20 12/26/20 22:59 06:59 14:59 Other: Weight 90.718 kg Height 5 feet 6 inches, weight 200 pounds, BMI 32.3. This is a well-developed well-nourished white female who is alert and oriented times 3 in no acute distress. HEENT: Within normal limits. NECK: Supple without mass or thyromegaly. CHEST AND LUNGS: Clear to auscultation. HEART: Regular rate and rhythm. BREASTS: Are without mass or discharge. AXILLARY EXAM: Negative for adenopathy. BACK: Negative for CVA tenderness. ABDOMEN: Soft, mildly obese, nontender, without palpable masses. PELVIC EXAM: Normal external genitalia with minimal atrophy. Cervix and vagina appear normal with mild atrophy. The cervix is slightly friable upon doing the Pap smear. There is no unusual discharge. There is no evidence of prolapse. The uterus is midposition, nongravid size and nontender. There are no palpable adnexal masses or tenderness. RECTAL EXAM: Rectovaginal exam is negative for mass or tenderness and is negative for occult blood. EXTREMITIES: Nontender. IMPRESSION: 1. 50-year-old menopausal female with normal gynecologic exam. 2. Subjective feeling of abdominal bloating for 5 months. Differential diagnosis will include increased abdominal fat associated with weight gain, intestinal gas and less likely ovarian neoplasm. PLAN: 1. Pap smear cotest was performed. 2. Self breast awareness was discussed with the patient. 3. Screening mammogram will be done today. 4. Pelvic ultrasound was recommended because of the abdominal bloating and the order slip was given to the patient for this. 5. Osteoporosis prevention was discussed. I have stressed the importance of adequate calcium, vitamin D and regular exercise. Recommended amounts of calcium and vitamin D were also discussed. 6. Weight control was discussed with the patient. I have stressed the importance of good nutrition, regular meals, adequate fiber intake and regular exercise. I have also suggested that she consider Weight Watchers if she continues to have problems with weight control. 7. She was advised to return in one year for her annual well woman exam.
--- NOTE | 2020-12-27 10:00 | MM ---
Reason for exam: screening (asymptomatic). Last mammogram was performed 1 year and 2 months ago. History: Patient is postmenopausal. Benign MG stereo VAD BX RT of the right breast, July 30, 2016. Benign right mammotome panel of the right breast, May 10, 2010. Took hormonal contraceptives for 12 years. Physical Findings: A clinical breast exam by your physician is recommended on an annual basis and results should be correlated with mammographic findings. MG Screening Mammo w CAD Bilateral CC and MLO view(s) were taken. Prior study comparison: October 19, 2019, bilateral MG screening mammo w CAD. August 04, 2018, bilateral MG 3d screening mammo w/cad. The breast tissue is heterogeneously dense. This may lower the sensitivity of mammography. There are benign appearing round, grouped calcifications in the right breast at biopsy clip. Previous mammotome biopsy in the right breast x 2. There is no discrete abnormality. ASSESSMENT: Benign, BI-RAD 2 RECOMMENDATION: Routine screening mammogram of both breasts in 1 year.
== END | disposition home or self-care (01) ==
LOC: WWCWWP 11:15
PROVIDERS: ATTEND Obstetrics & Gynecology
DX: Z12.31 Encounter for screening mammogram for malignant neoplasm of breast (principal)
CPT/HCPCS: 77067

== ENCOUNTER → 2021-01-15 | Outpatient (CLI) | payer OTHER ==
--- NOTE | 2021-01-15 16:57 | US ---
EXAMINATION TYPE: US pelvic complete DATE OF EXAM: 01/15/2021 COMPARISON: NONE CLINICAL HISTORY: 50-year-old female R14.0 ABDOMINAL BLOATING. Bloating for months, , , tubal ligation, ablation TECHNIQUE: Transabdominal sonographic images of the pelvis were acquired. Date of LMP: years ago, ablation FINDINGS: EXAM MEASUREMENTS: Uterus: 8.3 x 3.6 x 4.2 cm Endometrial Stripe: unable to visualize Right Ovary: 2.0 x 1.6 x 1.0 cm Left Ovary: 2.4 x 1.6 x 1.0 cm 1. Uterus: Anteverted with multiple fibroids, largest within the left uterine body =5.4 x 3.4 x 3.6 cm, fundal fibroid = 1.7 x 1.9 x 1.6 . 2. Endometrium: unable to discern due to h/o ablation and large uterine body fibroid 3. Right Ovary: wnl 4. Left Ovary: wnl 5. Bilateral Adnexa: wnl 6. Posterior cul-de-sac: wnl IMPRESSION: 1. Unable to delineate the endometrial stripe likely due to a combination of the patient's large 5.4 cm left uterine body fibroid and also the patient's prior endometrial ablation. Consider female pelvi c MRI if fibroid mapping or more definitive assessment of the junctional anatomy is desired. 2. Normal appearance to the ovaries. No pelvic free fluid.
--- NOTE | 2021-01-16 14:32 | P.PN ---
Progress Note - Text Progress Note Date: 01/16/21 OUTPATIENT FOLLOW-UP NOTE TEST(S)/RESULTS: Pelvic ultrasound done on 01/15/2021 shows normal ovaries and multiple uterine fibroids. The largest fibroid measures 5.4 x 3.4 x 3.6 cm another fibroid that was measured was 1.9 cm. METHOD OF NOTIFICATION: The patient was notified by phone. PATIENT COMMENTS: The patient does not recall being told that she has uterine fibroids. DIAGNOSIS: Multiple fibroid uterus in a perimenopausal female. DISCUSSION: At this time I do not believe her abdominal bloating is directly related to the uterine fibroids. The total uterus measured 8.3 x 3.6 x 4.2 cm. Her abdominal bloating is more likely related to the GI tract and possible intestinal gas. If she continues to have abdominal bloating, she will follow up with her PCP for further evaluation and possible abdominal imaging. PLAN: The [employer] FAQ handout on uterine fibroids will be sent mailed to the pat ient. She will call if she is having increasing pelvic pressure or pelvic symptoms that may be related to the uterine fibroids.
== END | disposition home or self-care (01) ==
LOC: RADUSWWP 12:10
PROVIDERS: ATTEND Obstetrics & Gynecology
DX: R14.0 Abdominal distension (gaseous) (principal)
CPT/HCPCS: 76856

== ENCOUNTER → 2022-02-05 | Outpatient (CLI) | payer OTHER ==
[2022-02-05 09:49] VITALS: BP 153/84; PULSE 59; RESP 18; TEMP 98.4
--- NOTE | 2022-02-05 10:25 | P.HPOB ---
History of Present Illness H&P Date: 02/05/22 Chief Complaint: The patient is here for her routine gynecologic exam and ma mmogram. This is a 51-year-old with an LMP of 2010. The patient is status post endometrial ablation and is considered menopausal. She is without gynecologic complaints and denies any postmenopausal bleeding. She denies any symptoms from her known fibroid uterus. Review of Systems The patient has gained 5 pounds over the last year. She denies respiratory, cardiac, or G.I. problems. 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 She has been amenorrheic since her endometrial ablation in 2010. Last Myocardial Infarction Date:: 2011 History of Any Multi-Drug Resistant Organisms: None Reported Past Surgical History: Ablation, Breast Surgery, Section, Heart Catheterization With Stent, Tubal Ligation, Uterine Ablation Additional Past Surgical History / Comment(s): colonoscopy about 1998. Laparoscopy for ovarian cyst 2014. Foot surgery. Past Anesthesia/Blood Transfusion Reactions: No Reported Reaction Additional Past Anesthesia/Blood Transfusion Reaction / Comment(s): Pt has never recieved blood. Date of Last Stent Placement:: Aug 2012 Past Psychological History: No Psychological Hx Reported Additional Psychological History / Comment(s): Pt lives at home with her and 2 children. 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 Smoking Status: Former smoker Past Alcohol Use History: Occasional (3-4 per week) Additional Past Alcohol Use History / Comment(s): She quit smoking in 2011. 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 - Past Family History Sister(s) Family Medical History: Cancer, Coronary Artery Disease (CAD) Additional Family Medical History / Comment(s): Cervical cancer. Father Family Medical History: Cancer, CVA/TIA Additional Family Medical History / Comment(s): Father is living. Throat cancer. Mother Family Medical History: Diabetes Mellitus Additional Family Medical History / Comment(s): Mother is living. Medications and Allergies Home Medications Medication Instructions Recorded Confirmed Type Aspirin 81 mg PO DAILY 12/16/14 02/05/22 History Atorvastatin [Lipitor] 40 mg PO HS 12/16/14 02/05/22 History carvediloL [Coreg] 3.125 mg PO BID 01/29/16 02/05/22 History Clopidogrel [Plavix] 75 mg PO DAILY 04/07/19 02/05/22 History Verapamil HCl [Verapamil ER] 120 mg PO DAILY 10/19/19 02/05/22 History Allergies Allergy/AdvReac Type Severity Reaction Status Date / Time ceftriaxone [From Rocephin] Allergy Wheezing Unverified 02/05/22 09:45 Exam Vital Signs Temp Pulse Resp BP Pulse Ox 02/05/22 09:46 98.4 F 59 L 18 153/84 97 Intake and Output 02/04/22 02/05/22 02/05/22 22:59 06:59 14:59 Other: Weight 92.079 kg Height 5 feet 6 inches, weight 205 pounds, BMI 33.0. This is a well-developed well-nourished white female who is alert and oriented times 3 in no acute distress. HEENT: Within normal limits. NECK: Supple without mass or thyromegaly. CHEST AND LUNGS: Clear to auscultation. HEART: Regular rate and rhythm. BREASTS: Are without mass or discharge. AXILLARY EXAM: Negative for adenopathy. BACK: Negative for CVA tenderness. ABDOMEN: Soft, nontender, without palpable masses. PELVIC EXAM: Normal external genitalia with mild atrophy. Cervix and vagina appear normal with mild atrophy. There is no unusual discharge. There is no evidence of prolapse. The uterus is midposition, multiparous nongravid size and nontender. There are no palpable adnexal masses or tenderness. RECTAL EXAM: Rectovaginal exam is negative for mass or tenderness and is negative for occult blood. EXTREMITIES: Nontender. IMPRESSION: 1. 51-year-old menopausal female with normal gynecologic exam. 2. Known uterine fibroid which is asymptomatic and seems to be stable in size on exam today. PLAN: 1. Pap smear was deferred since she had a negative Pap smear cotest on 12/26/2020. 2. Self breast awareness was discussed with the patient. We have also discussed symptoms associated with inflammatory breast cancer. 3. Screening mammogram will be done today. 4. Osteoporosis prevention was discussed. I have stressed the importance of adequate calcium, vitamin D and regular exercise. Recommended amounts of calcium and vitamin D were also discussed. 5. She was advised to return in one year for her annual well woman exam.
--- NOTE | 2022-02-07 11:37 | MM ---
Reason for exam: screening (asymptomatic). Last mammogram was performed 1 year and 1 month ago. History: Patient is postmenopausal. Benign MG stereo VAD BX RT of the right breast, July 30, 2016. Benign right mammotome panel of the right breast, May 10, 2010. Took hormonal contraceptives for 12 years. Physical Findings: A clinical breast exam by your physician is recommended on an annual basis and results should be correlated with mammographic findings. MG Screening Mammo w CAD Bilateral CC and MLO view(s) were taken. Prior study comparison: December 26, 2020, bilateral MG screening mammo w CAD. October 19, 2019, bilateral MG screening mammo w CAD. The breast tissue is heterogeneously dense. This may lower the sensitivity of mammography. Previous mammotome biopsy in the right breast x 2. There is chronic nodularity in the right breast. Right anterior MLO asymmetric density, just above the posterior nipple line is more defined. ASSESSMENT: Incomplete: need additional imaging evaluation, BI-RAD 0 RECOMMENDATION: Special view mammogram of the right breast. (3D) If lesion persists on supplemental views, image directed ultrasound is recommended. [facility] will attempt to contact patient to return for supplemental views and ultrasound if indicated.
== END ==
LOC: WWCWWP 09:21
PROVIDERS: ATTEND Obstetrics & Gynecology
DX: Z01.419 Encounter for gynecological examination (general) (routine) without abnormal findings (principal); Z12.31 Encounter for screening mammogram for malignant neoplasm of breast; Z78.0 Asymptomatic menopausal state; I25.10 Atherosclerotic heart disease of native coronary artery without angina pectoris; E78.5 Hyperlipidemia, unspecified; I25.2 Old myocardial infarction; Z87.891 Personal history of nicotine dependence; Z79.82 Long term (current) use of aspirin; Z88.1 Allergy status to other antibiotic agents
CPT/HCPCS: 77067

== ENCOUNTER → 2022-02-08 | Outpatient (CLI) | payer OTHER ==
--- NOTE | 2022-02-08 08:25 | MM ---
Reason for exam: additional evaluation requested from abnormal screening. Last mammogram was performed less than 1 month ago. History: Patient is postmenopausal. Benign MG stereo VAD BX RT of the right breast, July 30, 2016. Benign right mammotome panel of the right breast, May 10, 2010. Took hormonal contraceptives for 12 years. Physical Findings: A clinical breast exam by your physician is recommended on an annual basis and results should be correlated with mammographic findings. MG 3D Work Up W/Cad RT Spot compression CC, spot compression MLO, and LM view(s) were taken of the right breast. Prior study comparison: February 05, 2022, bilateral MG screening mammo w CAD. December 26, 2020, bilateral MG screening mammo w CAD. The breast tissue is heterogeneously dense. This may lower the sensitivity of mammography. There is no discrete abnormality including area of concern. These results were verbally communicated with the patient and result sheet given to the patient on 02/08/22. ASSESSMENT: Negative, BI-RAD 1 RECOMMENDATION: Return to routine screening mammogram schedule for both breasts.
== END | disposition home or self-care (01) ==
LOC: RADMAMWWP 07:37
PROVIDERS: ATTEND Obstetrics & Gynecology
DX: R92.8 Other abnormal and inconclusive findings on diagnostic imaging of breast (principal); Z78.0 Asymptomatic menopausal state
CPT/HCPCS: 77061; 77065

== ENCOUNTER 2022-05-13 07:07 | Day surgery (SDC) | payer OTHER ==
[2022-05-09 13:40] VITALS: BMI 29.9
[2022-05-13] MEDS ORDERED: LACTATED RINGERS 1,000 ML IV SCH (07:21)
--- NOTE | 2022-05-13 07:37 | P.GSHP ---
History of Present Illness H&P Date: 05/13/22 CHIEF COMPLAINT: Colon screen HISTORY OF PRESENT ILLNESS: The patient is a 51-year-old female who presents for colon screen. Lower endoscopy was offered for further evaluation and management. PAST MEDICAL HISTORY: Please see list. PAST SURGICAL HISTORY: Please see list. MEDICATIONS: Please see list. ALLERGIES: Please see list. SOCIAL HISTORY: No illicit drug use FAMILY HISTORY: No reports of Crohn disease or ulcerative colitis. REVIEW OF ORGAN SYSTEMS: CONSTITUTIONAL: No reports of fevers or chills. PHYSICAL EXAM: VITAL SIGNS: Stable GENERAL: Well-developed pleasant in no acute distress. HEENT: No scleral icterus. Extraocular movements grossly intact. Moist buccal mucosa. NECK: Supple without lymphadenopathy. CHEST: Unlabored respirations. Equal bilateral excursions. CARDIOVASCULAR: Regular rate and rhythm. Distal 2+ pulses. ABDOMEN: Soft, nontender, nondistended. MUSCULOSKELETAL: No clubbing, cyanosis, or edema. ASSESSMENT: 1. Colon screen. PLAN: 1. 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 She has been amenorrheic since her endometrial ablation in 2010. Last Myocardial Infarction Date:: 2012 History of Any Multi-Drug Resistant Organisms: None Reported Past Surgical History: Breast Surgery, Section, Heart Catheterization With Stent, Orthopedic Surgery, Tubal Ligation, Uterine Ablation Additional Past Surgical History / Comment(s): Laparoscopy for ovarian cyst. left foot surgery to remove bone spur, one cardiac stent. rt breast biopsy Past Anesthesia/Blood Transfusion Reactions: No Reported Reaction Additional Past Anesthesia/Blood Transfusion Reaction / Comment(s): Pt has never recieved blood. Date of Last Stent Placement:: 2012 Smoking Status: Former smoker - Past Family History Sister(s) Family Medical History: Cancer Additional Family Medical History / Comment(s): Cervical cancer. Father Family Medical History: Cancer Additional Family Medical History / Comment(s): Throat cancer. Mother Family Medical History: Diabetes Mellitus Additional Family Medical History / Comment(s): Mother is living. Medications and Allergies Home Medications Medication Instructions Recorded Confirmed Type Aspirin 81 mg PO DAILY 12/16/14 05/09/22 History Atorvastatin [Lipitor] 40 mg PO HS 12/16/14 05/09/22 History carvediloL [Coreg] 3.125 mg PO BID 01/29/16 05/09/22 History Clopidogrel [Plavix] 75 mg PO DAILY 04/07/19 05/09/22 History Verapamil HCl [Verapamil ER] 120 mg PO DAILY 10/19/19 05/09/22 History Allergies Allergy/AdvReac Type Severity Reaction Status Date / Time ceftriaxone [From Rocephin] Allergy Dyspnea, Unverified 05/09/22 13:29 throat swelling
[2022-05-13 07:52] VITALS: TEMP 97.3
[2022-05-13] MEDS ORDERED: LIDOCAINE 1% (10MG/ML) FOR IV START INTRADERMA ONE (07:53)
[2022-05-13] MEDS ORDERED: PROPOFOL 10 MG/ML 20 ML VIAL IV ONE (08:17)
--- NOTE | 2022-05-13 08:40 | P.PCN ---
Date of Procedure: 05/13/22 Description of Procedure: PREOPERATIVE DIAGNOSIS: Colonoscopy screening. POSTOPERATIVE DIAGNOSIS: Colonoscopy screening. OPERATION: Colonoscopy to the cecum, ileocecal valve and appendiceal orifice. SURGEON: Eladia Minaya MD. ANESTHESIA: MAC. INDICATIONS: The patient is a 51-year-old female who presents for colonoscopy screening. Benefits and risks were described and informed consent was obtained. DESCRIPTION OF PROCEDURE: The patient had undergone Sutab prep. The patient had been brought into the operating room and laid in the left lateral decubitus position. After adequate intravenous sedation, the rectum was examined with 2% lidocaine jelly. No external hemorrhoids were encountered. The rectal tone was within normal limits. No lesions were palpated in the rectal vault. An Olympus colonoscope was advanced until the cecum, ileocecal valve and appendiceal orifice were clearly viewed. The prep was excellent. No scattered diverticulosis was encountered. No colonic polyps were found. No evidence of focal colitis was found. Retroflexion of the scope demonstrated grade 1 internal hemorrhoids without active bleeding or inflammation. The colon was desufflated. The patient had tolerated the procedure well. Withdrawal time was over 6 minutes. FINDINGS: Aronchick preparation quality scale 1 (1-5) Internal hemorrhoids, grade 1 No external prolapsed hemorrhoids. No arteriovenous malformations. No adenomatous polyps. No focal colitis. RECOMMENDATIONS: Lower endoscopy in 10 2031 Plan - Discharge Summary New Discharge Prescriptions: Continue Atorvastatin [Lipitor] 40 mg PO HS Aspirin 81 mg PO DAILY carvediloL [Coreg] 3.125 mg PO BID Clopidogrel [Plavix] 75 mg PO DAILY Verapamil HCl [Verapamil ER] 120 mg PO DAILY Discharge Medication List Aspirin 81 mg PO DAILY 12/16/14 [History] Atorvastatin [Lipitor] 40 mg PO HS 12/16/14 [History] carvediloL [Coreg] 3.125 mg PO BID 01/29/16 [History] Clopidogrel [Plavix] 75 mg PO DAILY 04/07/19 [History] Verapamil HCl [Verapamil ER] 120 mg PO DAILY 10/19/19 [History] Follow up Appointment(s)/Referral(s): Eladia Minaya MD [STAFF PHYSICIAN] - As Needed Patient Instructions/Handouts: *[facility] - (Anesthesia) Endoscopy Discharge Instructions Activity/Diet/Wound Care/Special Instructions: Repeat colonoscopy in 10 years2031 Discharge Disposition: HOME SELF-CARE
[2022-05-13 08:57] VITALS: BP 145/87; PULSE 58; RESP 16
== END 2022-05-13 09:14 | disposition home or self-care (01) ==
LOC: ORWHC2ENDO 07:07
PROVIDERS: ATTEND Surgery Plastic and Reconstructive Surgery
DX: Z12.11 Encounter for screening for malignant neoplasm of colon (principal); I25.2 Old myocardial infarction; M19.90 Unspecified osteoarthritis, unspecified site; Z79.02 Long term (current) use of antithrombotics/antiplatelets; Z79.82 Long term (current) use of aspirin; Z83.3 Family history of diabetes mellitus; Z87.891 Personal history of nicotine dependence; Z88.1 Allergy status to other antibiotic agents; Z95.5 Presence of coronary angioplasty implant and graft
CPT/HCPCS: G0121; J2704

== ENCOUNTER 2022-08-09 06:25 | Day surgery (SDC) | payer OTHER ==
[2022-08-08 08:47] VITALS: BMI 29.1
[~2022-08-09 06:25] MED LIST: DEXAMETHASONE SOD PHOSPHATE 4 MG/ML 1 ML VIAL IV ONE; LACTATED RINGERS 1,000 ML IV SCH; MIDAZOLAM 2 MG/2 ML VIAL IV PRN; ONDANSETRON 4 MG/2 ML VIAL IVP ONE; SCOPOLAMINE 1 MG/72 HR PATCH TRANSDERM ONE
[2022-08-09 06:59] VITALS: TEMP 97.3
[2022-08-09] MEDS ORDERED: ONDANSETRON 4 MG/2 ML VIAL IVP ONE (07:09)
[2022-08-09] MEDS ORDERED: DEXAMETHASONE SOD PHOSPHATE 4 MG/ML 1 ML VIAL IVP ONE (07:10)
[2022-08-09] MEDS ORDERED: SCOPOLAMINE 1 MG/72 HR PATCH TRANSDERM ONE (07:10)
[2022-08-09] MEDS ORDERED: fentaNYL (PF) 50 MCG/ML 2 ML AMP IVP ONE (07:19)
[2022-08-09] MEDS ORDERED: MIDAZOLAM 2 MG/2 ML VIAL IVP ONE (07:19)
[2022-08-09] MEDS ORDERED: LIDOCAINE 2% INJ 20 MG/ML (2 ML VIAL) ONE (07:28)
[2022-08-09] MEDS ORDERED: SODIUM CHLORIDE 0.9% (PF) 10 ML VIAL ONE (07:28)
[2022-08-09] MEDS ORDERED: fentaNYL (PF) 50 MCG/ML 2 ML AMP ONE (07:28)
[2022-08-09] MEDS ORDERED: PROPOFOL 10 MG/ML 20 ML VIAL IV ONE (07:28)
[2022-08-09] MEDS ORDERED: ROPIVACAINE 5 MG/ML 30 ML VIAL ONE (07:28)
--- NOTE | 2022-08-09 09:09 | P.OP ---
Date of Procedure: 08/09/22 Preoperative Diagnosis: 1. 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 Subluxation second metatarsal phalangeal joint left foot Postoperative Diagnosis: 1. Same 2. Same Procedure(s) Performed: 1. Kidner procedure left foot 2. Janak osteotomy left second metatarsal Implants: 2.0 stainless steel cortical screws 2 5.5 mm corkscrew anchor Anesthesia: GETA Estimated Blood Loss (ml): 3 Pathology: none sent Condition: stable Disposition: PACU Description of Procedure: Prior to the patient being brought to the operating room, anesthesia administered a nerve block on the left lower extremity. Then the patient was brought into the operating room and placed on table supine position. Timeout was taken to confirm correct patient identifiers, correct laterality of surgery, and correct procedure. When all staff were in agreement with the timeout, the p atient was induced and placed under general anesthesia. A well-padded tourniquet was placed on the left ankle. And then the left foot was prepped and draped in the usual manner. The foot was exsanguinated with an Esmarch bandage and then the tourniquet was inflated to 250 mmHg. Attention was first directed over the dorsal aspect of the second metatarsal phalangeal joint. A lazy S incision was made over the joint. The incision was deepened to the subcutaneous layer careful to identify, avoid, and retract any neurovascular structures and cauterize any bleeding vessels. Blunt dissection was continued through the subcutaneous layer down to level of the joint capsule. A capsulotomy was performed lateral to the long extensor tendon to the digit. The capsules reflected from its osseous attachments on the second metatarsal head. A Janak osteotomy was then performed utilizing standard technique. Once the osteotomy was completed the capital fragment was shifted proximally and medially to correct the deformity. Fluoroscopy was used to adjust the position of the metatarsal head until desired alignment was achieved. Then a K wire was placed across the osteotomy to hold it in position. A drill hole for a 2.0 mm screw was then placed at the proximal aspect of the osteotomy. A 2.0 cortical screw was inserted and advanced until a compressed the osteotomy. The K wire was removed and then another 2.0 cortical screw was inserted and tightened until a compressed the osteotomy site. Final fluoroscopic imaging showed that the alignment of the second metatarsal head was maintained with proper placement of hardware. Aleja Uribeer was used to remove the dorsal bone created by the shifting of the osteotomy. And all roughened edges of bone were then smoothed with a rasp. The wound is irrigated thoroughly with antibiotic saline. The capsule was closed with 2-0 Vicryl. Subcutaneous closure was done with 4-0 Monocryl. And skin closure was done with 4-0 Stratafix in a running subcuticular manner. Then attention was directed over the medial aspect of the midfoot. An incision was made over the navicular tuberosity and along the course of the posterior tibial tendon just before the medial malleolus. The incision was deepened down to the subcutaneous layer careful to identify, avoid, and retract any neurovascular structures and cauterize any bleeding vessels. Blunt dissection was continued through the saphenous layer down to the deep fascia overlying the posterior tibial tendon. The fascial incision was made superior to the tendon and as well as the navicular insertion. And then in 1 full-thickness flap, the tendon and deep fascia reflected off the navicular tuberosity. The navicular tuberosity was identified and the accessory navicular easily found due to the fact that it was very loose. Utilizing a combination of an osteotome and a scalpel, the accessory navicular was freed from surrounding soft tissue and excised in total. An osteotome was then used to remove the medial cortex of the navicular and to reduce the overall prominence. All roughened edges were smoothed with a rasp. Fluoroscopy was used to make sure that enough bone had been resected. A drill hole for a 5.5 mm corkscrew anchor was then made from the medial aspect of the navicular into the body. Fluoroscopy was used during the drilling process to avoid the talonavicular and naviculocuneiform joints. Once the drilling was completed, the hole was tapped and then the 5.5 mm corkscrew anchor inserted to proper depth. The wound was then thoroughly irrigated with antibiotic saline. Utilizing the suture on the anchor, the proximal suture was used to bring the posterior tibial tendon forward and against the resected bone of the navicular. The foot was held in slight inversion during the initial repair. Then the distal sutures were used to complete the repair. With the suture still attached, the dorsal fascia was oversewn on the repair site in a pants over vest fashion. Once completed the foot was manipulated to test the stability the repair, and there was no movement noted at the repair site. The wound was irrigated thoroughly with antibiotic saline. Subcutaneous closure was done with 4-0 Monocryl. And skin closure done with 4-0 Stratafix in a running subcuticular manner. dermal glue was applied to all incisions. Steri-Strips were then placed across incisions. The incisions were covered with an Arthrex jumpstart dressing and then a dry bulky dressing. The tourniquet was released and capillary refill return to all digits on the left foot. The patient was then placed in a well- padded, well molded plaster posterior mold/sugar tong splint. The ankle was held in neutral position of the foot slightly inverted as the splint dried. Once the splint was dry, anesthesia was reversed and the patient was taken recovery with vital signs stable
[2022-08-09] MEDS: HYDROmorphone 0.5 MG/0.5 ML SYRINGE IVP PRN ×2 (09:15→09:26)
--- NOTE | 2022-08-09 09:20 | P.ANPRN ---
Procedure Note - Anesthesia - Nerve Block Performed Left Popliteal Single Time Out Performed: Yes (718) Date of Procedure: 08/09/22 Procedure Start Time: : Procedure Stop Time: :24 Location of Patient: PreOp Indication: Acute Post-Operative Pain, Requested by Surgeon Specifically requested for management of pain by DrGuerline: José Manuel Meadows Sedation Type: Sedate with meaningful contact maintained Preparation: Sterile Prep Position: Supine Catheter: None Needle Types: Pajunk Needle Gauge: 21 Ultrasound used to visualize needle placement: Yes Ultrasound used to observe medication spread: Yes Injectate: 0.5% Ropivacaine (see comment for volume) (15cc+15cc nacl pf) Blood Aspirated: No Pain Paresthesia on Injection Noted: No Resistance on Injection: Normal Image Stored and Saved: Yes Events: Uneventful and Well Tolerated
--- NOTE | 2022-08-09 09:20 | P.ANPRN ---
Procedure Note - Anesthesia - Nerve Block Performed Left Adductor Canal Single Time Out Performed: Yes (718) Date of Procedure: 08/09/22 Procedure Start Time: : Procedure Stop Time: Location of Patient: PreOp Indication: Acute Post-Operative Pain, Requested by Surgeon Specifically requested for management of pain by DrGuerline: José Manuel Meadows Sedation Type: Sedate with meaningful contact maintained Preparation: Sterile Prep Position: Supine Catheter: None Needle Types: Pajunk Needle Gauge: 21 Ultrasound used to visualize needle placement: Yes Ultrasound used to observe medication spread: Yes Injectate: 0.5% Ropivacaine (see comment for volume) (15cc+15cc nacl pf) Blood Aspirated: No Pain Paresthesia on Injection Noted: No Resistance on Injection: Normal Image Stored and Saved: Yes Events: Uneventful and Well Tolerated
[2022-08-09] MEDS ORDERED: HYDROcodone/APAP 5-325MG 1 EACH TAB PO ONE (09:59)
[2022-08-09] MEDS ORDERED: HYDROcodone/APAP 5-325MG 1 EACH TAB ONE (10:00)
[2022-08-09 10:43] VITALS: RESP 14
[2022-08-09 10:51] VITALS: BP 136/52; PULSE 82
== END 2022-08-09 10:51 | disposition home or self-care (01) ==
LOC: OR 06:25
PROVIDERS: ATTEND Podiatrist
DX: S93.145A Subluxation of metatarsophalangeal joint of left lesser toe(s), initial encounter (principal); M76.822 Posterior tibial tendinitis, left leg; G89.18 Other acute postprocedural pain; Q66.82 Congenital vertical talus deformity, left foot; X58.XXXA Exposure to other specified factors, initial encounter; I25.10 Atherosclerotic heart disease of native coronary artery without angina pectoris; I10 Essential (primary) hypertension; E78.5 Hyperlipidemia, unspecified; I25.2 Old myocardial infarction; Z87.891 Personal history of nicotine dependence; Z79.01 Long term (current) use of anticoagulants; Z79.899 Other long term (current) drug therapy; Z88.1 Allergy status to other antibiotic agents; Z79.82 Long term (current) use of aspirin; Z80.0 Family history of malignant neoplasm of digestive organs; Z80.49 Family history of malignant neoplasm of other genital organs; Z82.3 Family history of stroke; Z83.3 Family history of diabetes mellitus
CPT/HCPCS: 64447; 81025; 64445; 76942; 28238; 28308; C1713; J2250; J1100; J0690; J2405; J3010; J2795; J2704; J1170; J2001

== ENCOUNTER 2022-12-12 07:50 | Observation (INO) | payer OTHER ==
[2022-12-12] MEDS ORDERED: NITROGLYCERIN SL TABS 0.4 MG TAB SUBLINGUAL STA (08:02)
[2022-12-12] MEDS ORDERED: ASPIRIN 81 MG PO STA (08:02)
[2022-12-12 08:26] LABS: Basophils % (A) 1 %; Eosinophils # (A) 0.2 k/uL (0-0.7); Eosinophils % (A) 3 %; HCT 41.7 % (34.0-46.0); Lymphocytes # (A) 1.8 k/uL (1.0-4.8); Lymphocytes % (A) 36 %; MCH 30.4 pg (25.0-35.0); MCHC 33.6 g/dL (31.0-37.0); MCV 90.5 fL (80.0-100.0); Mean Platelet Volume 7.3; Monocytes # (A) 0.3 k/uL (0-1.0); Monocytes % (A) 7 %; Neutrophils # (A) 2.6 k/uL (1.3-7.7); Neutrophils % (A) 51 %; Platelet Count 258 k/uL (150-450); RBC 4.61 m/uL (3.80-5.40); RDW 12.9 % (11.5-15.5); WBC 5.1 k/uL (3.8-10.6)
--- NOTE | 2022-12-12 08:30 | ED ---
Chest Pain HPI - General Chief Complaint: Chest Pain Stated Complaint: Chest Pain,SOB Time Seen by Provider: 12/12/22 07:57 Source: patient, RN notes reviewed Mode of arrival: ambulatory Limitations: no limitations - History of Present Illness Initial Comments: 52-year-old female presents emergency Department with chief complaint of chest pain. Patient states that started last night. Patient states this is more of a heaviness of her chest. Patient states that she felt like she was sick earlier in the week possible influenza. Patient reports fever, feeling fatigued and body aches. 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 Patient did not take any of her medications this morning cannot take any aspirin. She states she did have some recent 29 episodes. Denies any nausea vomiting no abdominal pain no back pain - Related Data Home Medications Medication Instructions Recorded Confirmed Aspirin 81 mg PO DAILY 12/16/14 08/09/22 Atorvastatin [Lipitor] 40 mg PO HS 12/16/14 08/08/22 carvediloL [Coreg] 3.125 mg PO BID 01/29/16 08/08/22 Clopidogrel [Plavix] 75 mg PO DAILY 04/07/19 08/08/22 Verapamil HCl [Verapamil ER] 120 mg PO DAILY 10/19/19 08/08/22 Previous Rx's Medication Instructions Recorded HYDROcodone/APAP 5-325MG [[place] 1 tab PO Q6HR PRN #30 tab 08/09/22 5-325] Allergies Allergy/AdvReac Type Severity Reaction Status Date / Time ceftriaxone [From Rocephin] Allergy Dyspnea, Verified 12/12/22 08:23 throat swelling Review of Systems ROS Statement: Those systems with pertinent positive or pertinent negative responses have been documented in the HPI. ROS Other: All systems not noted in ROS Statement are negative. 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 She has been amenorrheic since her endometrial ablation in 2010. Last Myocardial Infarction Date:: 2012 History of Any Multi-Drug Resistant Organisms: None Reported Past Surgical History: Breast Surgery, Section, Heart Catheterization With Stent, Orthopedic Surgery, Tubal Ligation, Uterine Ablation Additional Past Surgical History / Comment(s): Laparoscopy for ovarian cyst. left foot surgery to remove bone spur, one cardiac stent. rt breast biopsy Past Anesthesia/Blood Transfusion Reactions: No Reported Reaction Additional Past Anesthesia/Blood Transfusion Reaction / Comment(s): no hx of blood transfusion Date of Last Stent Placement:: 2012 Past Psychological History: No Psychological Hx Reported Smoking Status: Former smoker Past Alcohol Use History: Occasional Past Drug Use History: Marijuana - Past Family History Sister(s) Family Medical History: Cancer Additional Family Medical History / Comment(s): Cervical cancer. Father Family Medical History: Cancer Additional Family Medical History / Comment(s): Throat cancer. Mother Family Medical History: Diabetes Mellitus Additional Family Medical History / Comment(s): Mother is living. General Exam Limitations: no limitations General appearance: alert, in no apparent distress Head exam: Present: atraumatic, normocephalic, normal inspection Eye exam: Present: normal appearance, PERRL, EOMI. Absent: scleral icterus, conjunctival injection, periorbital swelling ENT exam: Present: normal exam, normal oropharynx, mucous membranes moist Neck exam: Present: normal inspection, full ROM. Absent: tenderness, meningismus, lymphadenopathy Respiratory exam: Present: normal lung sounds bilaterally. Absent: respiratory distress, wheezes, rales, rhonchi, stridor Cardiovascular Exam: Present: regular rate, normal rhythm, normal heart sounds. Absent: systolic murmur, diastolic murmur, rubs, gallop, clicks GI/Abdominal exam: Present: soft, normal bowel sounds. Absent: distended, tenderness, guarding, rebound, rigid Neurological exam: Present: alert Course Vital Signs 12/12/22 07:52 Temperature 98.3 F Pulse Rate 74 Respiratory 20 Rate Blood Pressure 162/104 O2 Sat by Pulse 97 Oximetry Chest Pain MDM - MDM Was pt. sent in by a medical professional or institution (, PA, MAINTENANCE CUSTODIAN, urgent care, hospital, or residential...) When possible be specific @ -No Did you speak to anyone other than the patient for history (EMS, parent, family, police, friend...)? What history was obtained from this source @ -No Did you review nursing and triage notes (agree or disagree)? Why? @ -I reviewed and agree with nursing and triage notes Were old charts reviewed (outside hosp., previous admission, EMS record, old EKG, old radiological studies, urgent care reports/EKG's, residential records)? Report findings @ -No old charts were reviewed Differential Diagnosis (chest pain, altered mental status, abdominal pain women, abdominal pain men, vaginal bleeding, weakness, fever, dyspnea, syncope, headache, dizziness, GI bleed, back pain, seizure, CVA, palpatations, mental health)? @ -Chest pain, ACS, pneumonia, influenza, COVID-19, lung mass, chest wall pain, this list is not all-inclusive EKG interpreted by me (3pts min.). @ -As above X-rays interpreted by me (1pt min.). @ -Chest x-ray shows no acute process. CT interpreted by me (1pt min.). @ -None done U/S interpreted by me (1pt. min.). @ -None done What testing was considered but not performed or refused? (CT, X-rays, U/S, labs)? Why? @ -None What meds were considered but not given or refused? Why? @ -None Did you discuss the management of the patient with other professionals (professionals i.e. , PA, MAINTENANCE CUSTODIAN, lab, RT, psych nurse, social media marketer, coding clerks supervisor, teacher, traffic police officer, outpatient case manager)? Give summary @ -Hospitalist for admission, further treatment and management Was smoking cessation discussed for >3mins.? @ -No Was critical care preformed (if so, how long)? @ -No Were there social determinants of health that impacted care today? How? (Homelessness, low income, unemployed, alcoholism, drug addiction, transportation, low edu. Level, literacy, decrease access to med. care, fci, rehab)? @ -No Was there de-escalation of care discussed even if they declined (Discuss DNR or withdrawal of care, Hospice)? DNR status @ -No What co-morbidities impacted this encounter? (DM, HTN, Smoking, COPD, CAD, Cancer, CVA, ARF, Chemo, Hep., AIDS, mental health diagnosis, sleep apnea, morbid obesity)? @ -CAD, HTN Was patient admitted / discharged? Hospital course, mention meds given and route, prescriptions, significant lab abnormalities, going to OR and other pertinent info. @ -Admitted - initial troponin is negative, patient has history of ID, CAD, patient be admitted for cardiology and echocardiogram Undiagnosed new problem with uncertain prognosis? @ -No Drug Therapy requiring intensive monitoring for toxicity (Heparin, Nitro, Insulin, Cardizem)? @ -No Were any procedures done? @ -No Diagnosis/symptom? @ -Chest Pain Acute, or Chronic, or Acute on Chronic? @ -Acute Uncomplicated (without systemic symptoms) or Complicated (systemic symptoms)? @ -Uncomplicated Side effects of treatment? @ -No Exacerbation, Progression, or Severe Exacerbation? @ -No Poses a threat to life or bodily function? How? (Chest pain, [place], ID, pneumonia, PE, COPD, DKA, ARF, appy, cholecystitis, CVA, Diverticulitis, Homicidal, Suicidal, threat to staff... and all critical care pts) @ -Yes Disposition Clinical Impression: Chest pain Disposition: ADMITTED IP TO THIS HOSP Condition: Fair Referrals: Mainor Tarango MD [Primary Care Provider] - 1-2 days Time of Disposition: 09:11
[2022-12-12 08:40] LABS: INR 0.9 (<1.2); Partial Thromboplastin Time 23.5 sec (22.0-30.0)
[2022-12-12 08:44] LABS: ALT 34 U/L (4-34); AST 31 U/L (14-36); African American GFR (CKD) >90 (>60 ml/min/1.73 sqM); Albumin 4.3 g/dL (3.5-5.0); Alkaline Phosphatase 99 U/L (38-126); Anion Gap 6 mmol/L; Blood Urea Nitrogen 13 mg/dL (7-17); Calcium 8.7 mg/dL (8.4-10.2); Carbon Dioxide 24 mmol/L (22-30); Chloride 109 mmol/L (98-107); Glucose 104 mg/dL (74-99); Lipase 121 U/L (23-300); Non-African American GFR(CKD) 87 (>60 ml/min/1.73 sqM); Potassium 4.4 mmol/L (3.5-5.1); Sodium 139 mmol/L (137-145); Total Bilirubin 0.6 mg/dL (0.2-1.3); Total Protein 7.4 g/dL (6.3-8.2)
--- NOTE | 2022-12-12 08:47 | XR ---
EXAMINATION TYPE: XR chest 2V DATE OF EXAM: 12/12/2022 COMPARISON: Chest x-ray March 10, 2018 HISTORY: Chest pain. TECHNIQUE: Frontal and lateral views of the chest are obtained. FINDINGS: There is no focal air space opacity, pleural effusion, or pneumothorax seen. The cardiac silhouette size is stable and within normal limits. The osseous structures are intact. Overlying EK G leads are redemonstrated. IMPRESSION: No acute process. No significant change from prior.
[2022-12-12] MEDS ORDERED: NITROGLYCERIN SL TABS 0.4 MG TAB SUBLINGUAL PRN (09:17)
--- NOTE | 2022-12-12 10:00 | P.HPIM ---
History of Present Illness This is a pleasant 52 years old female with past medical history of coronary artery disease status post stent, osteoarthritis. Patient presents because of chest pressure over her chest getting up to the throat, she rated as 4/10, central, nonradiating rales. She felt some headache, yesterday she was feeling sick for 2 days with moderate headache body aches and diarrhea With dizziness, no weakness or numbness, no urinary complaints, no abdominal pain vomiting or diarrhea No smoking or illicit drugs, she drinks alcohol occasionally. Her lead designer is Dr. Clemons, which has history of stent in 2011. Her PCP is Dr. Tarango vitals his stable, blood pressure slightly elevated. Labs are unremarkable including CBC, BMP, liver enzymes, troponin, Covid, influenza and RSV virus are undetected chest x-ray: No acute process EKG: Sinus bradycardia at [address]-T changes. Review of Systems Review of systems CONSTITUTIONAL: No fever, no malaise, no fatigue. HEENT: No recent visual problems or hearing problems. Denied any sore throat. CARDIOVASCULAR: No orthopnea, PND, no palpitations, no syncope. PULMONARY: No shortness of breath, no cough, no hemoptysis. GASTROINTESTINAL: No diarrhea, no nausea, no vomiting, no abdominal pain. Normoactive bowel sounds. NEUROLOGICAL: No headaches, no weakness, no numbness. HEMATOLOGICAL: Denies any bleeding or petechiae. GENITOURINARY: Denies any burning micturition, frequency, or urgency. MUSCULOSKELETAL/RHEUMATOLOGICAL: Denies any joint pain, swelling, or any muscle pain. ENDOCRINE: Denies any polyuria or polydipsia. 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 She has been amenorrheic since her endometrial ablation in 2010. Last Myocardial Infarction Date:: 2012 History of Any Multi-Drug Resistant Organisms: None Reported Past Surgical History: Breast Surgery, Section, Heart Catheterization With Stent, Orthopedic Surgery, Tubal Ligation, Uterine Ablation Additional Past Surgical History / Comment(s): Laparoscopy for ovarian cyst. left foot surgery to remove bone spur, one cardiac stent. rt breast biopsy Past Anesthesia/Blood Transfusion Reactions: No Reported Reaction Additional Past Anesthesia/Blood Transfusion Reaction / Comment(s): no hx of blood transfusion Date of Last Stent Placement:: 2012 Past Psychological History: No Psychological Hx Reported Smoking Status: Former smoker Past Alcohol Use History: Occasional Past Drug Use History: Marijuana - Past Family History Sister(s) Family Medical History: Cancer Additional Family Medical History / Comment(s): Cervical cancer. Father Family Medical History: Cancer Additional Family Medical History / Comment(s): Throat cancer. Mother Family Medical History: Diabetes Mellitus Additional Family Medical History / Comment(s): Mother is living. Medications and Allergies Home Medications Medication Instructions Recorded Confirmed Type Aspirin 81 mg PO DAILY 12/16/14 08/09/22 History Atorvastatin [Lipitor] 40 mg PO HS 12/16/14 08/08/22 History carvediloL [Coreg] 3.125 mg PO BID 01/29/16 08/08/22 History Clopidogrel [Plavix] 75 mg PO DAILY 04/07/19 08/08/22 History Verapamil HCl [Verapamil ER] 120 mg PO DAILY 10/19/19 08/08/22 History HYDROcodone/APAP 5-325MG [[place] 1 tab PO Q6HR PRN #30 tab 08/09/22 Rx 5-325] Allergies Allergy/AdvReac Type Severity Reaction Status Date / Time ceftriaxone [From Rocephin] Allergy Dyspnea, Verified 12/12/22 08:23 throat swelling Physical Exam Vitals: Vital Signs Temp Pulse Resp BP Pulse Ox 12/12/22 07:52 98.3 F 74 20 162/104 97 Intake and Output 12/11/22 12/12/22 12/12/22 22:59 06:59 14:59 Other: Weight 84.822 kg GENERAL: The patient is alert and oriented x3, not in any acute distress. Well developed, well nourished. HEENT: Pupils are round and equally reacting to light. EOMI. No scleral icterus. No conjunctival pallor. Normocephalic, atraumatic. No pharyngeal erythema. No thyromegaly. CARDIOVASCULAR: S1 and S2 present. No murmurs, rubs, or gallops. PULMONARY: Chest is clear to auscultation, no wheezing or crackles. ABDOMEN: Soft, nontender, nondistended, normoactive bowel sounds. No palpable organomegaly. MUSCULOSKELETAL: No joint swelling or deformity. EXTREMITIES: No cyanosis, clubbing, or pedal edema. NEUROLOGICAL: Gross neurological examination did not reveal any focal deficits. SKIN: No rashes. no petechiae. Results CBC & Chem 7: 12/12/22 08:07 12/12/22 08:07 Labs: Abnormal Lab Results - Last 24 Hours (Table) 12/12/22 Range/Units 08:07 Chloride 109 H (98-107) mmol/L Glucose 104 H (74-99) mg/dL Assessment and Plan Assessment: Chest pain, rule out cardiac causes Cor history of coronary artery disease status post stent Hypertension Hyperlipidemia History of osteoarthrit Plan: We'll do serial troponins continue with aspirin Echocardiogram Cardiology consult Labs and medication were reviewed.. Continue same treatment. Continue with symptomatic treatment. Resume home medication. Monitor labs and vitals. DVT and GI prophylaxis. Further recommendations as per clinical course of the patient DVT prophylaxis: Subcutaneous heparin GI Prophylaxis: Pepcid Prognosis is guarded
[2022-12-12] MEDS ORDERED: CAFFEINE CITRATE 60 MG/3 ML VIAL IV PRN (11:10)
[2022-12-12] MEDS ORDERED: AMINOPHYLLINE 500 MG/20 ML VIAL IV PRN (11:10)
[2022-12-12] MEDS ORDERED: REGADENOSON 0.4 MG/5 ML SYRINGE IV PRN (11:10)
[2022-12-12 11:53] VITALS: RESP 16
[2022-12-12] MEDS: VERAPAMIL SR 120 MG TABLET.ER PO SCH (14:46)
--- NOTE | 2022-12-12 15:07 | CONS ---
CONSULTATION HISTORY OF PRESENT ILLNESS: This is a 52-year-old lady with a known history of PCI performed probably in 2011, of LAD with a stent and diagonal with a regular PTCA. She also has hypertension and hyperlipidemia and about a couple of years ago had episode of SVT, for which she is on a combination of Coreg and verapamil. She presented here with complaints of just not feeling well for the last couple of days, had some diarrhea and nondescript URI-type symptoms, and then she felt her heart racing for nearly 20 minutes or so, and this morning, she felt some chest pressure and came into the hospital. She may be having a viral prodrome, but all the workup for COVID and influenza is negative. She is resting comfortably at the time of my evaluation. Her initial set of troponin is normal, and also, her EKG is unremarkable. She has no chest pain, shortness of breath, or palpitations. PAST MEDICAL HISTORY: 1. CAD with prior stenting of LAD and PTCA of diagonal performed in October 2012. 2. She has hypertension. 3. Hyperlipidemia. 4. History of paroxysmal SVT, for which she is on a small dose of verapamil and Coreg combination, but has not had any significant recurrences. MEDICATIONS AT HOME: Include: 1. Aspirin 81 mg daily. 2. Plavix 75 mg daily. 3. Lipitor 40 mg daily. 4. Coreg 3.125 mg b.i.d. 5. Verapamil extended-release 120 mg daily. 6. Sublingual nitroglycerin p.r.n. ALLERGIES: She is allergic to ceftriaxone. PHYSICAL EXAMINATION: VITAL SIGNS: Blood pressure is 130/70. Pulse rate is 64 per minute, regular. HEENT: Unremarkable. Fundus was not examined by me. NECK: Supple. No JVD. I do not hear a carotid bruit. There is no thyromegaly. HEART: Reveals S1 and S2 heard normally. No significant rub, murmur, or gallop. LUNGS: Clear. ABDOMEN: Soft and nontender. EXTREMITIES: Lower extremities reveal normal pulses. No edema. CENTRAL NERVOUS SYSTEM: Normal. IMAGING STUDIES: EKG revealed sinus bradycardia. No acute changes. LABORATORY DATA: Revealed 2 unremarkable troponin levels and normal D-dimer. IMPRESSION: 1. Atypical chest pain in a patient with a known prior percutaneous coronary intervention. 2. History of paroxysmal supraventricular tachycardia with 1 episode of 20-minute palpitations, but now in sinus rhythm. 3. History of percutaneous coronary intervention of left anterior descending and also diagonal. 4. Hyperlipidemia. RECOMMENDATIONS: I am recommending that we proceed with a Lexiscan stress test. If this is normal, she can be discharged with probably a 2-week event monitor. I discussed my thoughts in detail with the patient. Thank you very much for the consult. NESTOR / JOHN: [id number] /
--- NOTE | 2022-12-12 16:19 | NM ---
EXAMINATION TYPE: NM stress lexiscan cardiolite DATE OF EXAM: 12/12/2022 COMPARISON: NONE HISTORY: Chest pain and pressure. Palpitations. History of prior heart attack and angioplasty. TECHNIQUE: After the intravenous administration of 9.9 mCi Tc 99m Sestamibi - Cardiolite resting SPE CT images acquired 90 minutes post injection. The patient received 0.4mg Lexiscan, 23.8 mCi Tc 99m Sestamibi - Stress images obtained 120 minutes p ost injection FINDINGS: Review of stress and rest SPECT images demonstrates no distinct perfusion abnormality. Gated analysi s shows normal wall motion with an estimated left ventricular ejection fraction of 66 %. IMPRESSION: No convincing scintigraphic evidence for reversible ischemia.
[2022-12-12] MEDS: carvediloL 3.125 MG TAB PO SCH (18:02)
[2022-12-12] MEDS: FAMOTIDINE 20 MG TAB PO SCH (20:14)
[2022-12-12] MEDS: HEPARIN SODIUM,PORCINE/PF 5,000 UNIT/0.5 ML SYRINGE SQ SCH (20:14)
[2022-12-12] MEDS ORDERED: FAMOTIDINE 20 MG/2 ML VIAL IV SCH (21:00)
[2022-12-12] MEDS ORDERED: ATORVASTATIN 40 MG TAB PO SCH (21:00)
[2022-12-13 03:13] VITALS: TEMP 97.7
[2022-12-13] MEDS ORDERED: ASPIRIN 325 MG TAB PO SCH (09:00)
[2022-12-13] MEDS ORDERED: CLOPIDOGREL 75 MG TAB PO SCH (09:00)
[2022-12-13] MEDS ORDERED: ASPIRIN 81 MG PO SCH (09:00)
[2022-12-13 09:08] VITALS: BP 129/68; PULSE 53
--- NOTE | 2022-12-13 10:28 | CA ---
Transthoracic Echo Report Name: Penelope Javed Age: 52 Gender: F : 1970 Exam Date: 12/12/2022 15:03 Exam Location: [place] [facility] Ht (in): 66 Wt (lb): 187 Ordering Physician: Jonel Fernandez Attending/Referring Phys: [id number], Rebecca Lead Machinist Emani Walker RDCS Procedure CPT: Indications: Chest Pain Cardiac Hx: Technical Quality: Fair Contrast 1: Total Dose (mL): Contrast 2: Total Dose (mL): MEASUREMENTS (Male / Female) Normal Values 2D ECHO LV Diastolic Diameter PLAX 4.2 cm 4.2 - 5.9 / 3.9 - 5.3 cm LV Systolic Diameter PLAX 3.0 cm IVS Diastolic Thickness 1.2 cm 0.6 - 1.0 / 0.6 - 0.9 cm LVPW Diastolic Thickness 1.2 cm 0.6 - 1.0 / 0.6 - 0.9 cm LV Relative Wall Thickness 0.6 RV Internal Dim ED PLAX 3.7 cm LA Volume 66.9 cm??? 18 - 58 / 22 - 52 cm??? M-MODE Aortic Root Diameter MM 2.6 cm LA Systolic Diameter MM 4.6 cm LA Ao Ratio MM 1.8 AV Cusp Separation MM 1.8 cm DOPPLER AV Peak Velocity 155.7 cm/s AV Peak Gradient 9.7 mmHg AI Peak Velocity 423.3 cm/s AI Peak Gradient 71.7 mmHg AI Pressure Half Time 477.4 ms LVOT Peak Velocity 120.6 cm/s LVOT Peak Gradient 5.8 mmHg MV Area PHT 3.4 cm??? Mitral E Point Velocity 100.7 cm/s Mitral A Point Velocity 66.0 cm/s Mitral E to A Ratio 1.5 MV Deceleration Time 225.1 ms TR Peak Velocity 225.9 cm/s TR Peak Gradient 20.4 mmHg Right Ventricular Systolic Press 23.6 mmHg FINDINGS Left Ventricle Mildly increased septal wall thickness. Mildly increased posterior wall thickness. Normal left ventricular systolic function with no obvious regional wall motion abnormalities. Left ventricular ejection fraction is estimated at 55-60 %. Right Ventricle Mild right ventricular dilatation. Right ventricular systolic pressure within normal limits. Right Atrium Normal right atrial size. Left Atrium Moderately increased left atrial volume. Mildly increased left atrial area. Mitral Valve Structurally normal mitral valve. Mild mitral regurgitation. Aortic Valve Trileaflet aortic valve. Trace aortic regurgitation. Tricuspid Valve Structurally normal tricuspid valve. Mild tricuspid regurgitation. Pulmonic Valve Trace pulmonic regurgitation. Pericardium No pericardial effusion. Aorta Normal size aortic root and proximal ascending aorta. CONCLUSIONS Normal LV size and systolic function. Mild mitral and tricuspid insufficiency. No pericardial effusion Previewed by: Dr. Kylie Clemons MD (Electronically Signed) Final Date: 13 December 2022 10:27
--- NOTE | 2022-12-13 10:42 | CA ---
Lexiscan Nuclear Stress Test Report Name: Penelope Javed Exam Date: 12/12/2022 13:22 Exam Location: [place] Stress Ht (in): 66 Wt (lb): 187 BSA: 1.94 Ordering Phys: Toyin Stein Referring Phys: DANIELLE, Technologist: Javier Aguiar Age: 52 Gender: F : 1970 Procedure CPT: Indications: Reflex order-Stress test ICD-10 Codes: Patient History: CHEST PAIN, PALPITATIONS, FAMILY HX OF HEART DISEASE, FORMER TOBACCO USER, PRIOR [place], CARDIAC CATH WITH STENT (x1) Medications: Meds past 24 hrs: Pretest Chest Pain: STRESS TEST Lexiscan Protocol Exercise Duration (min:sec): 01:[address] Depressions (mm): Angina Score: Arredondo Score: Resting HR (bpm): 53 Peak HR (bpm): 95 Resting BP (mmHg): 142 / 84 Peak BP (mmHg): 165 / 89 MPHR: 167 Target HR: 142 % MPHR: 57 METS: 1.0 Total Dose: Peak Dose: Atropine: Double Product: 12602 BP Response: Stress Termination: Stress Symptoms: Stress Summary: ECG ANALYSIS Resting ECG: Stress ECG: CONCLUSIONS Baseline EKG revealed a normal sinus rhythm without significant ST-T changes. With Lexiscan administration the heart rate changing from 53-74 bpm and the blood pressure changed from 142/84-160/81. EKG remained unremarkable. By EKG criteria this is a unremarkable Lexiscan stress test. The nuclear scan results which are more pertinent will be reported by the radiologist Dr. Kylie Clemons MD (Electronically Signed) Final Date: 13 December 2022 10:40
[2022-12-13 11:07] LABS: Chol/HDL Ratio 3.69 Ratio
[2022-12-13] MEDS: HEPARIN SODIUM,PORCINE/PF 5,000 UNIT/0.5 ML SYRINGE SQ SCH (11:46)
[2022-12-13] MEDS: carvediloL 3.125 MG TAB PO SCH (11:46)
[2022-12-13] MEDS: VERAPAMIL SR 120 MG TABLET.ER PO SCH (11:47)
[2022-12-13] MEDS: FAMOTIDINE 20 MG TAB PO SCH (11:47)
--- NOTE | 2022-12-13 18:11 | PN ---
PROGRESS NOTE SUBJECTIVE: This is a 52-year-old lady with a stenting of LAD and PTCA of diagonal performed 10 years ago. She came into the hospital with atypical chest pain and also had palpitations lasting nearly 20 to 30 minutes. She has a known history of SVT. However, on reviewing the rhythm strips and the telemetry, no evidence of any arrhythmia. She had a Lexiscan stress test, which did not reveal ischemia. LV function is well preserved. She is resting comfortably without symptoms ambulating in the hallways. OBJECTIVE: VITAL SIGNS: Stable. NECK: No JVD. HEART: S1 and S2 heard normally. LUNGS: Clear. ABDOMEN: Unchanged. LOWER EXTREMITIES: Unchanged. Rest of physical exam, unchanged. IMPRESSION: 1. Atypical chest pain in a patient with a known previous percutaneous coronary intervention. 2. Palpitations, but no evidence of arrhythmia on telemetry. 3. Hypertension. 4. Hyperlipidemia. RECOMMENDATIONS: I am recommending that she can be discharged with a 2-week event monitor, and I will see her in the office in 3 weeks. Discussed my thoughts in detail with the patient. The patient can be discharged. MMODL / IJN: [id number] /
--- NOTE | 2022-12-18 11:32 | P.DS ---
Providers Date of admission: 12/12/22 09:14 Attending physician: Chet Queen MD Consults: 12/12/22 09:17 Consult Physician Urgent Consulting Provider: Kylie Clemons Reason/Comments: chest pain Do you want consulting provider notified?: Yes Primary care physician: Mainor Tarango Hospital Course: Diagnoses: Chest pain, rule out cardiac causes Cor history of coronary artery disease status post stent Hypertension Hyperlipidemia History of osteoarthrit Hospital course: This is a pleasant 52 years old female with past medical history of coronary artery disease status post stent, osteoarthritis. Patient presents because of chest pressure over her chest getting up to the throat, she was evaluated by food cart attendant and had a negative stress test. Patient continued on aspirin and Plavixis agreeable. chest pain resolved, no dyspnea, no other new symptoms, no ventricular weakness. String Top Sealer recommended event monitor which is placed upon discharge as patient has fever runs of A. fib and RVR. Patient currently hemodynamically stable, asymptomatic and a to go home. Patient was cleared for discharge by food cart attendant. Patient denies any other new symptoms. Problems and management plan were discussed with the patient and he verbalized understanding and acceptance Patient was found stable and can be discharged home in guarded prognosis however he needs follow-up as an outpatient. Patient was instructed to follow up with PCP Dr. Tarango within one week and patient agrees Patient was instructed to follow up with food cart attendant Dr. Clemons 2-3 weeks and she agrees to call and make appointment Physical exam Gen: patient is a AAOx3, no distress CVS: S1-S2, RRR, no murmur Lungs: B/L CTA, no wheezing Abdomen: soft, no distention, no tenderness, positive bowel sounds Extremity: no leg edema or induration Time spent more than 35 minutes Patient Condition at Discharge: Fair Plan - Discharge Summary New Discharge Prescriptions: Continue Atorvastatin [Lipitor] 40 mg PO HS Aspirin 81 mg PO DAILY carvediloL [Coreg] 3.125 mg PO BID Clopidogrel [Plavix] 75 mg PO DAILY Verapamil HCl [Verapamil ER] 120 mg PO DAILY Discharge Medication List Aspirin 81 mg PO DAILY 12/16/14 [History] Atorvastatin [Lipitor] 40 mg PO HS 12/16/14 [History] carvediloL [Coreg] 3.125 mg PO BID 01/29/16 [History] Clopidogrel [Plavix] 75 mg PO DAILY 04/07/19 [History] Verapamil HCl [Verapamil ER] 120 mg PO DAILY 10/19/19 [History] Follow up Appointment(s)/Referral(s): Mainor Tarango MD [Primary Care Provider] - 1-2 days Kylie Clemons MD [Family Provider] - 3 Weeks Activity/Diet/Wound Care/Special Instructions: heart healthy diet activity is restricted till you see your doctor Discharge Disposition: HOME SELF-CARE
== END 2022-12-13 12:37 | disposition home or self-care (01) ==
LOC: EC 07:50 → 6NMEDSUR 09:14
PROVIDERS: ADMIT Internal Medicine; ATTEND Internal Medicine
DX: R07.9 Chest pain, unspecified (principal); I47.1 Supraventricular tachycardia; I08.1 Rheumatic disorders of both mitral and tricuspid valves; I25.10 Atherosclerotic heart disease of native coronary artery without angina pectoris; M19.90 Unspecified osteoarthritis, unspecified site; I10 Essential (primary) hypertension; R00.1 Bradycardia, unspecified; E78.5 Hyperlipidemia, unspecified; I25.2 Old myocardial infarction; Z20.822 Contact with and (suspected) exposure to COVID-19; Z79.82 Long term (current) use of aspirin; Z79.02 Long term (current) use of antithrombotics/antiplatelets; Z79.899 Other long term (current) drug therapy; Z88.1 Allergy status to other antibiotic agents; Z98.51 Tubal ligation status; Z95.5 Presence of coronary angioplasty implant and graft; Z98.891 History of uterine scar from previous surgery; Z98.890 Other specified postprocedural states; Z87.891 Personal history of nicotine dependence; Z80.49 Family history of malignant neoplasm of other genital organs; Z80.8 Family history of malignant neoplasm of other organs or systems; Z83.3 Family history of diabetes mellitus
CPT/HCPCS: 96372; 99285; 36415; 93005; 93017; 93306; 93270; 85379; 80061; 80053; 83690; 83735; 84484; 85025; 85610; 85730; 87636; 71046; 78452; G0378 ×2; A9500; J2785; J1644

== ENCOUNTER → 2023-02-12 | Outpatient (CLI) | payer OTHER ==
[2023-02-12 09:35] VITALS: BP 136/81; PULSE 69; RESP 16; TEMP 98.1
--- NOTE | 2023-02-12 10:10 | P.HPOB ---
History of Present Illness H&P Date: 02/12/23 Chief Complaint: The patient is here for her routine gynecologic exam and ma mmogram. This is a 52-year-old with an LMP of 2010. The patient is without gynecologic complaints and denies any postmenopausal bleeding. She denies any symptoms from her known fibroid uterus. Review of Systems The patient's weight has been stable over the last year. She denies respiratory, cardiac, or G.I. problems. 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 She has been amenorrheic since her endometrial ablation in 2010. Last Myocardial Infarction Date:: 2012 History of Any Multi-Drug Resistant Organisms: None Reported Past Surgical History: Breast Surgery, Section, Heart Catheterization With Stent, Orthopedic Surgery, Tubal Ligation, Uterine Ablation Additional Past Surgical History / Comment(s): Laparoscopy for ovarian cyst. left foot surgery to remove bone spur, one cardiac stent. rt breast biopsy. Colonoscopy 2021(next after 10yr). Past Anesthesia/Blood Transfusion Reactions: No Reported Reaction Additional Past Anesthesia/Blood Transfusion Reaction / Comment(s): no hx of blood transfusion Date of Last Stent Placement:: 2012 Past Psychological History: No Psychological Hx Reported Additional Psychological History / Comment(s): . 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 - Past Family History Sister(s) Family Medical History: Cancer Additional Family Medical History / Comment(s): Cervical cancer. Father Family Medical History: Cancer Additional Family Medical History / Comment(s): Throat cancer. Mother Family Medical History: Diabetes Mellitus Additional Family Medical History / Comment(s): Mother is living. Medications and Allergies Home Medications Medication Instructions Recorded Confirmed Type Aspirin 81 mg PO DAILY 12/16/14 02/12/23 History Atorvastatin [Lipitor] 40 mg PO HS 12/16/14 02/12/23 History carvediloL [Coreg] 3.125 mg PO BID 01/29/16 02/12/23 History Clopidogrel [Plavix] 75 mg PO DAILY 04/07/19 02/12/23 History Verapamil HCl [Verapamil ER] 120 mg PO DAILY 10/19/19 02/12/23 History Allergies Allergy/AdvReac Type Severity Reaction Status Date / Time ceftriaxone [From Rocephin] Allergy Anaphylaxis Verified 02/12/23 09:29 Exam Vital Signs Temp Pulse Resp BP Pulse Ox 02/12/23 09:31 98.1 F 69 16 136/81 97 Intake and Output 02/11/23 02/12/23 02/12/23 22:59 06:59 14:59 Other: Weight 92.079 kg Height 5 feet 5 inches, weight 203 pounds, BMI 33.8. This is a well-developed well-nourished white female who is alert and oriented times 3 in no acute distress. HEENT: Within normal limits. NECK: Supple without mass or thyromegaly. CHEST AND LUNGS: Clear to auscultation. HEART: Regular rate and rhythm. BREASTS: Are without mass or discharge. AXILLARY EXAM: Negative for adenopathy. BACK: Negative for CVA tenderness. ABDOMEN: Soft, nontender, without palpable masses. PELVIC EXAM: Normal external genitalia with minimal atrophy. Cervix and vagina appear normal with minimal atrophy. There is no unusual discharge. There is no evidence of prolapse. The uterus is midposition, nongravid size and nontender. There are no palpable adnexal masses or tenderness. RECTAL EXAM: Rectovaginal exam is negative for mass or tenderness and is negative for occult blood. EXTREMITIES: Nontender. IMPRESSION: 1. 52-year-old menopausal female with normal gynecologic exam. 2. History of fibroid uterus which is asymptomatic and stable in size on exam today. PLAN: 1. Pap smear was deferred since she had a negative Pap smear cotest on 12/26/2020. 2. Self breast awareness was discussed with the patient. We have also discussed symptoms associated with inflammatory breast cancer. 3. Screening mammogram will be done today. 4. Osteoporosis prevention was discussed. I have stressed the importance of adequate calcium, vitamin D and regular exercise. Recommended amounts of calcium and vitamin D were also discussed. 5. She was advised to return in one year for her annual well woman exam.
--- NOTE | 2023-02-13 08:00 | MM ---
Reason for Exam: Screening (asymptomatic). Last screening mammogram was performed 12 month(s) ago. Patient History: Menarche at age 10. First Full-Term at age 28. Patient has history of breast feeding. Hormonal Contraceptives for 12 years until age 26. 07/30/2016, Benign Core Biopsy on the right side. 05/10/2010, Benign Core Biopsy on the right side. Risk Values: Bianca 5 year model risk: 2.0%. NCI Lifetime model risk: 15.0%. Prior Study Comparison: 02/17/2017 Right Diagnostic Mammogram, [facility]. 07/23/2017 Bilateral Screening Mammogram, [facility]. 08/04/2018 Bilateral Screening Mammogram, [facility]. 10/19/2019 Bilateral Screening Mammogram, [facility]. 12/26/2020 Bilateral Screening Mammogram, [facility]. 02/05/2022 Bilateral Screening Mammogram, [facility]. 02/08/2022 Right Diagnostic Mammogram, [facility]. Tissue Density: The breast tissue is heterogeneously dense. This may lower the sensitivity of mammography. Findings: Analyzed By CAD. Right: New punctate/pleomorphic calcifications some in area with adjacent biopsy clip, however these calcifications are new or/increased from prior approximately 8.1 cm in the nipple measuring 13 mm in greatest length. These are best appreciated on cc view and less well appreciated on the MLO view. Left: There is no suspicious group of microcalcifications or new suspicious mass in either breast. Overall Assessment: Incomplete: need additional imaging evaluation, BI-RAD 0 Management: Diagnostic Mammogram of the right breast. A clinical breast exam by your physician is recommended on an annual basis and results should be correlated with mammographic findings. [facility] will attempt to contact patient to return for supplemental views and ultrasound if indicated. Electronically signed and approved by: Francisco Treviño DO
== END ==
LOC: WWCWWP 09:19
PROVIDERS: ATTEND Obstetrics & Gynecology
DX: Z12.31 Encounter for screening mammogram for malignant neoplasm of breast (principal); Z01.411 Encounter for gynecological examination (general) (routine) with abnormal findings; Z79.82 Long term (current) use of aspirin; I25.10 Atherosclerotic heart disease of native coronary artery without angina pectoris; I25.2 Old myocardial infarction; M19.90 Unspecified osteoarthritis, unspecified site; Z87.891 Personal history of nicotine dependence; Z88.1 Allergy status to other antibiotic agents
CPT/HCPCS: 77063; 77067

== ENCOUNTER → 2023-02-17 | Outpatient (CLI) | payer OTHER ==
--- NOTE | 2023-02-17 10:18 | MM ---
Reason for Exam: Additional evaluation requested from abnormal screening. Last screening mammogram was performed less than 1 month ago. Patient History: Menarche at age 10. First Full-Term at age 28. Patient has history of breast feeding. Hormonal Contraceptives for 12 years until age 26. 07/30/2016, Benign Core Biopsy on the right side. 05/10/2010, Benign Core Biopsy on the right side. Risk Values: Bianca 5 year model risk: 2.0%. NCI Lifetime model risk: 15.0%. Tissue Density: Right: The breast tissue is heterogeneously dense. This may lower the sensitivity of mammography. Findings: Analyzed By CAD. There are scattered and loosely grouped benign-appearing punctate calcifications throughout the right breast with 2 biopsy clips on additional views. No definitive increase number of suspicious group of microcalcifications on additional views. Overall Assessment: Benign, BI-RAD 2 Management: Screening Mammogram of both breasts in 1 year. Return to routine follow-up. Results were given to the patient verbally at the time of exam. Electronically signed and approved by: Chaz Muhammad M.D.
== END | disposition home or self-care (01) ==
LOC: RADMAMWWP 09:39
PROVIDERS: ATTEND Obstetrics & Gynecology
DX: R92.8 Other abnormal and inconclusive findings on diagnostic imaging of breast (principal)
CPT/HCPCS: 77061; 77065

== ENCOUNTER → 2023-04-23 | Outpatient (CLI) | payer OTHER ==
--- NOTE | 2023-04-23 08:31 | CT ---
EXAMINATION TYPE: CT sinus wo con DATE OF EXAM: 04/23/2023 COMPARISON: None. HISTORY: chronic drainage and congestion CT DLP: 647 mGycm. Automated Exposure Control for Dose Reduction was Utilized. TECHNIQUE: CT scan of the sinuses is performed without contrast, axial images are obtained, coronal r eformatted images are also reviewed. FINDINGS: Mild eccentric mucosal thickening in the inferior maxillary sinuses bilaterally. Mild to mo derate mucosal thickening involving right ethmoid sinuses with some patchy opacification. Mild mucosa l thickening left ethmoid sinus. Remaining paranasal sinuses are clear without abnormal opacification . The ostiomeatal complex is patent bilaterally on the coronal images. Visualized portion of mastoid air cells show no abnormal opacification. The globes are intact bilate rally. IMPRESSION: Mild Chronic paranasal sinus disease as detailed above. Possible minimal right-sided acut e ethmoid sinusitis.
== END | disposition home or self-care (01) ==
LOC: RADCTMAIN 06:55
PROVIDERS: ATTEND Otolaryngology
DX: J32.8 Other chronic sinusitis (principal)
CPT/HCPCS: 70486

== ENCOUNTER → 2023-05-08 | Outpatient (CLI) | payer OTHER ==
[2023-05-08 17:45] LABS: T4, Free (Free Thyroxine) 1.16 ng/dL (0.80-1.80)
== END | disposition home or self-care (01) ==
LOC: LABWHC1 07:48
PROVIDERS: ATTEND Otolaryngology
DX: M54.2 Cervicalgia (principal)
CPT/HCPCS: 36415; 84439; 84443; 86376

== ENCOUNTER → 2023-10-08 | Outpatient (CLI) | payer OTHER ==
--- NOTE | 2023-10-08 11:15 | P.PN ---
Progress Note - Text Progress Note Date: 10/08/23 I spoke with the patient by phone on 10/07/2023. She was complaining of a vaginal odor and it seemed to be the same as when she was treated for bacterial vaginosis a year ago. She is requesting to be treated for bacterial vaginosis again. She is getting ready to go away on vacation. She denies any significant vaginal discharge or vulvar itching. In the past oral metronidazole caused nausea and she did well with metronidazole vaginal gel. Impression: Probable bacterial vaginosis with vaginal odor. Plan: The electronic prescription for metronidazole vaginal gel was sent to [facility] pharmacy on 10/07/2023. She is to insert one applicator full into the vagina daily at bedtime 5 days. There will be no refills. She will call if symptoms are not improving or if problems.
== END ==
LOC: WWCWWP 10:59
PROVIDERS: ATTEND Obstetrics & Gynecology
DX: N98.8 Other complications associated with artificial fertilization (principal); Z87.891 Personal history of nicotine dependence; Z88.1 Allergy status to other antibiotic agents

== ENCOUNTER → 2024-03-09 | Outpatient (CLI) | payer OTHER ==
[2024-03-09 11:09] VITALS: BP 150/78; PULSE 67; RESP 16; TEMP 98.1
--- NOTE | 2024-03-09 11:53 | P.HPOB ---
History of Present Illness H&P Date: 03/09/24 Chief Complaint: The patient is here for her routine gynecologic exam and ma mmogram. This is a 53-year-old with an LMP of 2010. She has been amenorrheic since her endometrial ablation. She thinks she went through a menopausal change within the last couple of years because of hot flashes. Hot flashes have been declining during the past couple of months. Hot flashes, however seem to have been variable during the past 2 years. She also thinks she may have bacterial vaginosis again. About a year ago she had been treated for bacterial vaginosis and on 10/08/2023 she had similar symptoms and was treated over the phone again with metronidazole vaginal gel for vaginal odor. She states she is again noticing some odor without discharge or irritation. She also has been noticing a right pelvic pressure during the past couple of weeks which reminds her of when she had an ovarian cyst several years back. At that time she had a laparoscopic procedure for suspected appendicitis and was found to have a ruptured ovarian cyst. Comfort does seem to become more sharp when she moves certain ways and at those times the pain can be rated a 5 out of 10. Most of the time, however, it feels more like pressure Review of Systems The patient's weight has been stable over the last year. She denies respiratory, cardiac, or G.I. problems. 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 She has been amenorrheic since her endometrial ablation in 2010. Last Myocardial Infarction Date:: 2012 History of Any Multi-Drug Resistant Organisms: None Reported Past Surgical History: Breast Surgery, Section, Heart Catheterization With Stent, Orthopedic Surgery, Tubal Ligation, Uterine Ablation Additional Past Surgical History / Comment(s): Laparoscopy for ovarian cyst. left foot surgery to remove bone spur, one cardiac stent. rt breast biopsy. Colonoscopy 2021(next after 10yr). Past Anesthesia/Blood Transfusion Reactions: No Reported Reaction Additional Past Anesthesia/Blood Transfusion Reaction / Comment(s): no hx of blood transfusion Date of Last Stent Placement:: 2012 Past Psychological History: No Psychological Hx Reported Additional Psychological History / Comment(s): . 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 - Past Family History Sister(s) Family Medical History: Cancer Additional Family Medical History / Comment(s): Cervical cancer. Father Family Medical History: Cancer Additional Family Medical History / Comment(s): Throat cancer. Mother Family Medical History: Diabetes Mellitus Additional Family Medical History / Comment(s): Mother is living. Medications and Allergies Home Medications Medication Instructions Recorded Confirmed Type Aspirin 81 mg PO DAILY 12/16/14 03/09/24 History carvediloL [Coreg] 3.125 mg PO BID 01/29/16 03/09/24 History Verapamil HCl [Verapamil ER] 120 mg PO DAILY 10/19/19 03/09/24 History Allergies Allergy/AdvReac Type Severity Reaction Status Date / Time ceftriaxone [From Rocephin] Allergy Anaphylaxis Verified 03/09/24 10:47 Exam Vital Signs Temp Pulse Resp BP Pulse Ox 03/09/24 10:48 98.1 F 67 16 150/78 97 Intake and Output 03/08/24 03/09/24 03/09/24 22:59 06:59 14:59 Other: Weight 91.626 kg Height 5 feet 5 inches, weight 202 pounds, BMI 33.6 This is a well-developed well-nourished white female who is alert and oriented times 3 in no acute distress. HEENT: Within normal limits. NECK: Supple without mass or thyromegaly. CHEST AND LUNGS: Clear to auscultation. HEART: Regular rate and rhythm. BREASTS: Are without mass or discharge. AXILLARY EXAM: Negative for adenopathy. BACK: Negative for CVA tenderness. ABDOMEN: Soft, without palpable masses. There is minimal right lower quadrant tenderness without rebound tenderness. PELVIC EXAM: Normal external genitalia with minimal atrophy. Cervix and vagina appear normal with minimal atrophy. There is a thin guido discharge without odor. There is no cervical motion tenderness. There is no evidence of prolapse. The uterus is midposition, nongravid size and nontender. There are no palpable adnexal masses. There is minimal right adnexal tenderness which is felt as pressure. RECTAL EXAM: Rectovaginal exam is negative for mass or tenderness and is negative for occult blood. EXTREMITIES: Nontender. IMPRESSION: 1. 53-year-old perimenopausal female has been amenorrheic since her endometrial ablation, with recent right pelvic pressure and slight right adnexal tenderness. Differential diagnosis will include ovarian cyst, GI discomfort, pelvic adhesions 2. Vaginal discharge on exam with patient noticing a vaginal odor, consistent with bacterial vaginosis. 3. Bated blood pressure. 4. Variable vasomotor symptoms. PLAN: 1. Pap smear was deferred since she had a negative Pap smear cotest on 12/26/2020 2. Self breast awareness was discussed with the patient. We have also discussed symptoms associated with inflammatory breast cancer. 3. Screening mammogram will be done today. 4. Affirm vaginitis panel was obtained from the vagina. She will try to avoid things that may decrease the good bacteria numbers in the vagina such as douching, exposure to chlorinated water, and getting soap into the vagina. She has started taking a probiotic. 5. FSH will be drawn today. The order slip was given to the patient for this 6. Pelvic ultrasound to further evaluate the right pelvic discomfort. The order slip was given to the patient for this. 7. She will check her own blood pressure on a regular basis and follow-up with her PCP for blood pressure elevations. 8. She was advised to return in one year for her annual well woman exam and as needed.
--- NOTE | 2024-03-10 12:12 | MM ---
Reason for Exam: Screening (asymptomatic). Last mammogram was performed 1 year(s) and 1 month(s) ago. Patient History: Menarche at age 10. First Full-Term at age 28. Postmenopausal. Patient has history of breast feeding. Hormonal Contraceptives for 12 years until age 26. 07/30/2016, Benign Core Biopsy on the right side. 05/10/2010, Benign Core Biopsy on the right side. Risk Values: Bianca 5 year model risk: 2.1%. NCI Lifetime model risk: 14.8%. Prior Study Comparison: 02/08/2022 Right Diagnostic Mammogram, [facility]. 02/12/2023 Bilateral MG 3D screening mammo w/cad, [facility]. 02/17/2023 Right MG 3D work up w/cad RT, [facility]. Tissue Density: The breasts are heterogeneously dense, which may obscure small masses. Findings: Analyzed By CAD. There is no suspicious group of microcalcifications or new suspicious mass in either breast. Biopsy clip marker on the right. Benign appearing calcifications. Overall Assessment: Benign, BI-RAD 2 Management: Screening Mammogram of both breasts in 1 year. . Patient should continue monthly self-breast exams. A clinical breast exam by your physician is recommended on an annual basis. This exam should not preclude additional follow-up of suspicious palpable abnormalities. Note on Bianca scores and lifetime risk: 1. A Bianca score greater than 3% is considered moderate risk. If this is the case, consider specialist referral to assess eligibility for a risk reducing agent. 2. If overall lifetime risk for the development of breast cancer is 20% or higher, the patient may qualify for future screening with alternating mammogram and breast MRI. Electronically signed and approved by: Stefano Carter M.D. Radiologis
[2024-03-10 14:35] LABS: Gardnerella Positive (Negative); Trichomonas Negative (Negative)
--- NOTE | 2024-03-11 10:25 | P.PN ---
Progress Note - Text Progress Note Date: 03/11/24 OUTPATIENT FOLLOW-UP NOTE TEST(S)/RESULTS: Test results from 03/09/2024 include FSH 51.2, and affirm vaginitis panel was positive for Gardnerella, negative for Cata, and negative for trichomonas. METHOD OF NOTIFICATION: The patient was notified by phone on 03/11/2024. PATIENT COMMENTS: Patient previously tried metronidazole orally but this caused her not to feel well. She has used metronidazole gel without problems. DIAGNOSIS: Bacterial vaginosis. FSH indicates she is i a menopausal change. DISCUSSION: We have discussed ways of trying to decrease the severity of vaginosis avoiding exposure to chlorinated water, avoiding getting soap into the vagina, saliva into the vagina and douching. If recurrent BV trying Rephresh vaginal gel, acidophillus probiotics, and eating yogurt. Metronidazole gel 1 applicator into the vagina nightly x 5 days. Electronic prescription will be sent to [facility] pharmacy. The pelvic ultrasound that was done on 03/10/2024 is pending. PLAN: As above.
== END ==
LOC: WWCWWP 10:02
PROVIDERS: ATTEND Obstetrics & Gynecology
DX: Z12.31 Encounter for screening mammogram for malignant neoplasm of breast (principal); N89.8 Other specified noninflammatory disorders of vagina; I10 Essential (primary) hypertension; J30.0 Vasomotor rhinitis; Z78.0 Asymptomatic menopausal state; Z88.1 Allergy status to other antibiotic agents; Z87.891 Personal history of nicotine dependence
CPT/HCPCS: 36415; 77063; 77067; 83001; 87480; 87510; 87660

== ENCOUNTER → 2024-03-10 | Outpatient (CLI) | payer OTHER ==
--- NOTE | 2024-03-11 13:05 | US ---
EXAMINATION TYPE: US pelvis complete transvag DATE OF EXAM: 03/10/2024 COMPARISON: CT & US CLINICAL INDICATION: Female, 53 years old with history of R10.2 PELVIC AND PERINEAL PAIN; Pt states R LQ pain TECHNIQUE: Transvaginal (TV) and Transabdominal (TA) . Transabdominal sonographic images of the pel vis were acquired. Transvaginal sonographic images were medically necessary to better assess the fol lowing anatomy: TV was ordered by physician Date of LMP: 2010- h/o ablation EXAM MEASUREMENTS: Uterus: 8.4 x 3.2 x 4.6 cm Endometrial Stripe: 0.3 cm Left Ovary: 1.9 x 1.9 x 0.9 cm 1. Uterus: Anteverted Heterogeneous, Nabothian cyst in cervix, probable fibroid left uterine body = 5.5 x 3.8 x 4.0 cm 2. Endometrium: Not well delineated and limited in evaluation due to h/o ablation 3. Right Ovary: Obscured by overlying bowel gas, no pelvic mass identified 4. Left Ovary: small, exophytic follicle= 1.1 x 0.8 x 1.2 cm 5. Bilateral Adnexa: wnl 6. Posterior cul-de-sac: wnl IMPRESSION: 1. No definite pelvic mass. Uterus is heterogeneous which is nonspecific. There is a uterine mass ananda suring 5.5 cm along the left uterine body. Most likely in the basis of a uterine fibroid which was de scribed on prior ultrasound.
--- NOTE | 2024-03-11 15:44 | P.PN ---
Progress Note - Text Progress Note Date: 03/11/24 OUTPATIENT FOLLOW-UP NOTE TEST(S)/RESULTS: Pelvic ultrasound done on 03/10/2024 shows a left uterine fibroid measuring 5.5 cm and a left ovarian follicular cyst measuring 1.2 cm. No right adnexal masses seen. METHOD OF NOTIFICATION: The patient was notified by phone on 03/11/2024. PATIENT COMMENTS: The patient states her discomfort is on the right side. DIAGNOSIS: Fibroid uterus stable from her 2020 ultrasound. Small left follicular ovarian cyst measuring 1.2 cm. DISCUSSION: I doubt her right pelvic discomfort is gynecologic in nature. Possibilities would be bowel or intestine related pain or possibly pelvic adhesions from the previous surgery. PLAN: No gynecologic intervention is warranted at this time. If her pain is improving, she will discuss this with her PCP for possible further evaluation.
== END | disposition home or self-care (01) ==
LOC: RADUSWWP 14:15
PROVIDERS: ATTEND Obstetrics & Gynecology
DX: D25.9 Leiomyoma of uterus, unspecified (principal); N83.02 Follicular cyst of left ovary
CPT/HCPCS: 76830; 76856

== ENCOUNTER → 2024-03-22 | Outpatient (CLI) | payer OTHER ==
--- NOTE | 2024-03-22 17:45 | XR ---
EXAMINATION TYPE: XR lumbar spine 3V DATE OF EXAM: 03/22/2024 Comparison: None Clinical History: 53-year-old female M54.50 low back pain Findings: 5 lumbar type vertebral bodies. Advanced disc/endplate degenerative change L4-L5 with facet arthropat hy. Vertebral body heights are preserved and alignment is maintained. Mild degenerative disc disease lower thoracic and upper lumbar spine. Impression: 1. Severe degenerative disc disease L4-L5 with facet arthropathy. 2. No vertebral compression collapse or malalignment.
== END | disposition home or self-care (01) ==
LOC: RADXRMAIN 09:39
PROVIDERS: ATTEND Family Medicine
DX: M51.36 Other intervertebral disc degeneration, lumbar region (principal); M47.816 Spondylosis without myelopathy or radiculopathy, lumbar region
CPT/HCPCS: 72100

== ENCOUNTER → 2025-03-01 | Outpatient (CLI) | payer OTHER ==
[2025-03-01 10:57] VITALS: BP 115/77; PULSE 79; RESP 16; TEMP 97.7
--- NOTE | 2025-03-01 12:27 | P.HPOB ---
History of Present Illness H&P Date: 03/01/25 Chief Complaint: The patient is here for her routine gynecologic exam and ma mmogram. This is a 54-year-old G2, P2 with an LMP of 2010. The patient is complaining of significantly worse hot flashes especially over the last 3 to 6 months. Can occur several times an hour and they occur during the day and at night. Her making it much more difficult for her to sleep. She has tried [id number] remedies such as melatonin and CBD edibles without much improvement with her sleep problems. She is otherwise without complaints. Review of Systems The patient has lost 20 pounds over the last year. She was on Wegovy for 11 months up until December of this year. She denies respiratory, cardiac, or G.I. problems. 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 She has been amenorrheic since her endometrial ablation in 2010. Last Myocardial Infarction Date:: 2012 History of Any Multi-Drug Resistant Organisms: None Reported Past Surgical History: Breast Surgery, Section, Heart Catheterization With Stent, Orthopedic Surgery, Tubal Ligation, Uterine Ablation Additional Past Surgical History / Comment(s): Laparoscopy for ovarian cyst. left foot surgery to remove bone spur, one cardiac stent. rt breast biopsy. Colonoscopy 2021(next after 10yr). Past Anesthesia/Blood Transfusion Reactions: No Reported Reaction Additional Past Anesthesia/Blood Transfusion Reaction / Comment(s): no hx of blood transfusion Date of Last Stent Placement:: 2012 Past Psychological History: No Psychological Hx Reported Additional Psychological History / Comment(s): . 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 - Past Family History Sister(s) Family Medical History: Cancer Additional Family Medical History / Comment(s): Cervical cancer. Father Family Medical History: Cancer Additional Family Medical History / Comment(s): Throat cancer. Mother Family Medical History: Diabetes Mellitus Additional Family Medical History / Comment(s): Mother is living. Medications and Allergies Home Medications Medication Instructions Recorded Confirmed Type Aspirin 81 mg PO DAILY 12/16/14 03/01/25 History carvediloL [Coreg] 3.125 mg PO BID 01/29/16 03/01/25 History Verapamil HCl [Verapamil ER] 120 mg PO DAILY 10/19/19 03/01/25 History metroNIDAZOLE 0.75% VAGINAL 1 applic VAGINAL HS 5 Days #70 gm 03/11/24 03/01/25 Rx [Metrogel Vaginal] Atorvastatin [Lipitor] 40 mg PO DAILY 03/01/25 03/01/25 History Multivitamin [Multivitamins Adult 1 tab PO DAILY 03/01/25 03/01/25 History Gummies] Allergies Allergy/AdvReac Type Severity Reaction Status Date / Time ceftriaxone [From Rocephin] Allergy Anaphylaxis Verified 03/01/25 10:36 Exam Vital Signs Temp Pulse Resp BP 03/01/25 10:42 97.7 F 79 16 115/77 Intake and Output 02/28/25 03/01/25 03/01/25 22:59 06:59 14:59 Other: Weight 83.007 kg Height 5 feet 4 inches, weight 183 pounds, BMI 31.4. This is a well-developed well-nourished white female who is alert and oriented times 3 in no acute distress. HEENT: Within normal limits. NECK: Supple without mass or thyromegaly. CHEST AND LUNGS: Clear to auscultation. HEART: Regular rate and rhythm. BREASTS: Are without mass or discharge. AXILLARY EXAM: Negative for adenopathy. BACK: Negative for CVA tenderness. ABDOMEN: Soft, nontender, without palpable masses. PELVIC EXAM: Normal external genitalia with mild atrophy. Cervix and vagina appear normal with mild atrophy. There is no unusual discharge. There is no evidence of prolapse. The uterus is midposition, nongravid size and nontender. There are no palpable adnexal masses or tenderness. RECTAL EXAM: Rectovaginal exam is negative for mass or tenderness and is negative for occult blood. EXTREMITIES: Nontender. IMPRESSION: 1. 54-year-old menopausal female with moderate vasomotor symptoms and difficulty sleeping. 2. History of a 5.4 cm uterine fibroid which is asymptomatic and not palpable on exam today. PLAN: 1. Pap smear cotest was performed. 2. Self breast awareness was discussed with the patient. We have also discussed symptoms associated with inflammatory breast cancer. 3. Screening mammogram will be done today. 4. Discussion regarding hormone replacement therapy and other options for her menopausal symptoms. Other options included SSRI medications, clonidine, and exib-bth-awkjwxg supplements. Discussed pros and cons with each of these options. [place] the [facility] study findings which included a slight increased risk for heart attack, stroke, blood clots, and breast cancer. Because of her history of coronary artery disease and heart attack past, she is not an ideal candidate for HRT. After discussing the other options as well, she is still interested in possible HRT. She will discuss the option of HRT with her steam finisher, Dr. ARA Clemons. If he thinks she would be okay to take HRT, we can consider a low-dose HRT. She will also let me know if she still been a nonhormonal option. ACOG FAQ handouts were given to the patient on the Menopausal years and HRT. 5. Osteoporosis prevention was discussed. I have stressed the importance of adequate calcium, vitamin D and regular exercise. Recommended amounts of calcium and vitamin D were also discussed. 6. Weight control was discussed. I stressed the importance of good nutrition, regular meals, adequate fiber, and regular exercise. 7. She was advised to return in one year for her annual well woman exam and as needed.
--- NOTE | 2025-03-02 14:05 | MM ---
Reason for Exam: Screening (asymptomatic). Last screening mammogram was performed 12 month(s) ago. Patient History: Menarche at age 10. First Full-Term at age 28. Postmenopausal. Patient has history of breast feeding. Hormonal Contraceptives for 12 years until age 26. 07/30/2016, Benign Core Biopsy on the right side. 05/10/2010, Benign Core Biopsy on the right side. Risk Values: Bianca 5 year model risk: 2.2%. NCI Lifetime model risk: 14.5%. Prior Study Comparison: 10/19/2019 Bilateral Screening Mammogram, [facility]. 12/26/2020 Bilateral Screening Mammogram, [facility]. 02/05/2022 Bilateral Screening Mammogram, [facility]. 02/08/2022 Right Diagnostic Mammogram, [facility]. 02/12/2023 Bilateral MG 3D screening mammo w/cad, [facility]. 02/17/2023 Right MG 3D work up w/cad RT, [facility]. 03/09/2024 Bilateral MG 3D screening mammo w/cad, [facility]. Tissue Density: The breasts are heterogeneously dense, which may obscure small masses. Findings: Analyzed By CAD. Asymmetric nodular density 7.6 cm from the nipple measuring approximately 9 mm in size lower outer left breast. Additional views are recommended. Stable benign calcifications are noted bilaterally without suspicious cluster. Overall Assessment: Incomplete: need additional imaging evaluation, BI-RAD 0 Management: Diagnostic Mammogram of the left breast. Patient should continue monthly self-breast exams. A clinical breast exam by your physician is recommended on an annual basis. This exam should not preclude additional follow-up of suspicious palpable abnormalities. Note on Bianca scores and lifetime risk: 1. A Bianca score greater than 3% is considered moderate risk. If this is the case, consider specialist referral to assess eligibility for a risk reducing agent. 2. If overall lifetime risk for the development of breast cancer is 20% or higher, the patient may qualify for future screening with alternating mammogram and breast MRI. [facility], , 03/01/2025 1:03 PM. Electronically signed and approved by: Jose Gould M.D. Radiologis
== END ==
LOC: WWCWWP 10:12
PROVIDERS: ATTEND Obstetrics & Gynecology
DX: Z01.419 Encounter for gynecological examination (general) (routine) without abnormal findings (principal); Z12.31 Encounter for screening mammogram for malignant neoplasm of breast; N95.1 Menopausal and female climacteric states; G47.9 Sleep disorder, unspecified; Z88.1 Allergy status to other antibiotic agents; Z87.891 Personal history of nicotine dependence
CPT/HCPCS: 77063; 77067

== ENCOUNTER → 2025-03-07 | Outpatient (CLI) | payer OTHER ==
--- NOTE | 2025-03-07 11:34 | MM ---
Reason for Exam: Additional evaluation requested from abnormal screening. Last screening mammogram was performed less than 1 month ago. Patient History: Menarche at age 10. First Full-Term at age 28. Postmenopausal. Patient has history of breast feeding. Hormonal Contraceptives for 12 years until age 26. 07/30/2016, Benign Core Biopsy on the right side. 05/10/2010, Benign Core Biopsy on the right side. Risk Values: Bianca 5 year model risk: 2.2%. NCI Lifetime model risk: 14.5%. Prior Study Comparison: 02/17/2023 Right MG 3D work up w/cad RT, [facility]. 03/09/2024 Bilateral MG 3D screening mammo w/cad, [facility]. 03/01/2025 Bilateral MG 3D screening mammo w/cad, [facility]. Tissue Density: Left: The breasts are heterogeneously dense, which may obscure small masses. Findings: Analyzed By CAD. The question lower outer quadrant asymmetric density middle to posterior depth does not persist on additional views. Findings compatible with superimposition shadow. Overall Assessment: Benign, BI-RAD 2 Management: Screening Mammogram of both breasts in 1 year. Results were given to the patient verbally at the time of exam. Patient should continue monthly self-breast exams. A clinical breast exam by your physician is recommended on an annual basis. This exam should not preclude additional follow-up of suspicious palpable abnormalities. Note on Bianca scores and lifetime risk: 1. A Bianca score greater than 3% is considered moderate risk. If this is the case, consider specialist referral to assess eligibility for a risk reducing agent. 2. If overall lifetime risk for the development of breast cancer is 20% or higher, the patient may qualify for future screening with alternating mammogram and breast MRI. [facility], , 03/07/2025 11:31 AM. Electronically signed and approved by: Enid Collazo M.D. Radiologist
== END | disposition home or self-care (01) ==
LOC: RADMAMWWP 10:23
PROVIDERS: ATTEND Obstetrics & Gynecology
DX: R92.8 Other abnormal and inconclusive findings on diagnostic imaging of breast (principal); R92.332 Mammographic heterogeneous density, left breast; Z78.0 Asymptomatic menopausal state; Z92.0 Personal history of contraception
CPT/HCPCS: 77061; 77065